=== PATIENT | female | born 1950 | race Caucasian/White ===

== ENCOUNTER → 2016-12-30 | Day surgery (SDC) | payer OTHER ==
[2016-12-11 08:02] VITALS: Ht 157.5 cm; Wt 75.0 kg
[~2016-12-30] VITALS: Ht 157.5 cm; Wt 75.0 kg
[~2016-12-30] MED LIST: 500ML BSS 0.3ML EPI 1:1000PF IRRIG ONE; ACET300T2 PO; ACETAMINOPHEN 325 MG TAB PO PRN; AMVISC PLUS 0.8ML SYRINGE INT OCU ONE; ATROPINE SULFATE 0.1 MG/ML 5ML SYR IV PRN; BIOT1TAB2 PO; BIOTCAP2 PO; BROM0.07 OPL; BSS FLUSH ONE; CRS/10 PO; CYCL0.052 OP; DIPH25CA5 PO; DIPH25CA50 PO; ENDOCOAT 0.85ML SYRINGE INT OCU ONE; EpHEDrine SULFATE INJ 50 MG/ML AMP IV PRN; EpINEphrine INJ 1MG/ML AMP 1 MG/ML AMP ONE; FENTANYL CITRATE INJ 50 MCG/1 ML 2 ML VIAL ONE; GLC/500 PO; GLC500 PO; LACTATED RINGER'S 1000ML 500 ML IV SCH; LEVO150T PO; LEVO150T9 PO; LIDOCAINE 4% OP SOLN DROP CHARGE ONE; LIDOCAINE 4% OP SOLN DROP CHARGE OPL SCH; LIDOCAINE HCL 1% MPF 2 ML VIAL ONE; METO25TA3 PO; MIDAZOLAM HCL 1 MG/ML 2ML VIAL ONE; MIX: 4ML BSS 1ML EPI 1:1000 PF TOP ONE; MOXIFLOXACIN OPH SOLN PER DROP CHARGE ONE; POVIDONE-IODINE OP SOLN 30 ML BTL ONE; PRED1SUS OPL; PROPARACAINE 0.5% OP SOLN PER DROP CHARGE OPL SCH; SERT50TA PO; TOBRAMYCIN/DEXAMETHASONE OPH OINT PER APPLN CHARGE ONE; TRMCR515 TOP; TRMO115 TOP
--- NOTE | 2016-12-30 08:09 | History & Physical Bridge - [place] ---
H&P Re-Evaluation Bridge Note: I have examined the patient, reviewed the History & Physical and in the interval since the performance of the History & Physical I have noted the following changes of clinical significance: No changes noted. Left eye cataract surgery.
[2016-12-30] MEDS: PHENYLEPHRINE HCL 2.5% OP SOLN PER DROP CHARGE OPL SCH ×3 (08:12→08:22)
[2016-12-30] MEDS: TROPICAMIDE 1% OP SOLN PER DROP CHARGE OPL SCH ×3 (08:13→08:23)
[2016-12-30] MEDS: CYCLOPENTOLATE HCL 1% OP SOLN PER DROP CHARGE OPL SCH ×3 (08:14→08:24)
[2016-12-30] MEDS: MOXIFLOXACIN OPH SOLN PER DROP CHARGE OPL SCH ×3 (08:15→08:25)
[2016-12-30 09:27] VITALS: TEMP 36.5
--- NOTE | 2016-12-30 09:27 | [facility] Post Operative Brief Note ---
Immediate Operative Summary Operative Date Dec 30, 2016. Pre-Operative Diagnosis Left Eye Cataract Post-Operative Diagnosis Left Cataract Phacoemulsification With Intraocular Lens Implant Procedure(s) Performed Left Cataract Phacoemulsification With Intraocular Lens Implant Surgeon Dr Daniels Dice Table Person Surgeon(s) None Estimated Blood Loss 0ml Findings left cataract Specimens None Complication(s) None Disposition
--- NOTE | 2016-12-30 09:27 | [facility] Operative Report ---
Operative Report Date of Service Dec 30, 2016. Operative Report DATE OF OPERATION: 12/30/16 PREOPERATIVE DIAGNOSIS: Senile nuclear cataract, left eye POSTOPERATIVE DIAGNOSIS: Senile nuclear cataract, left eye PROCEDURE PERFORMED: Phacoemulsification with intraocular lens implantation, left eye SURGEON: Dr. Bebeto Daniels ANESTHESIA: Topical with 1% intracameral lidocaine and monitored anesthesia care COMPLICATIONS: None DESCRIPTION OF PROCEDURE: After positively identifying the patient both verbally and by wristband in the preoperative area, the left eye was marked as the operative eye. The patient was then brought back to the operating room by the anesthesia and nursing staff where they were given a drop of Lidocaine and betadine into the operative eye. They were then sterilely prepped and draped in the standard fashion typical for ophthalmic surgery. Steri-strips were placed along the upper eyelids to keep the lashes back, and a lid speculum was placed into the operative eye. At this point, a documented time out was performed with members of the ophthalmology, nursing, and anesthesia staffs all agreeing upon the correct patient, correct location for surgery, correct procedure, and correct type and power of intraocular lens to be implanted. The microscope was then swung into position. First, a paracentesis wound was made using a sideport blade. Then, in sequence, 1% preservative-free lidocaine followed by Endocoat viscoelastic was injected into the anterior chamber. Next , the main incision was made with a keratome blade in triplanar fashion. A sharp cystotome was introduced into the eye and used to create a tear in the anterior capsule, which was directed into a continuous curvilinear capsulorrhexis using Utrata forceps. Hydrodissection was then performed with BSS on a flat-tip cannula. Next, the phacoemulsification handpiece was introduced into the eye and used to remove the nucleus in a [id number] fashion. This was done without complication and then the irrigation-aspiration handpiece was introduced into the eye and used to remove all remaining cortical and epinuclear material. Amvisc was then injected into the anterior chamber as well as into the capsular bag and using the lens injector system, an MX60 18.5 D lens, serial number [id number], and expiration date 04/2019 was injected into the capsular bag and rotated into the correct position. Next, the irrigation- aspiration handpiece was used to remove all remaining Amvisc. BSS was used to hydrate the main wound, and then BSS was injected into the paracentesis site to reach physiologic pressure and then the main wound was checked and found to be watertight. The patient was given drops of Vigamox and Tobradex ointment into the operative eye, and then the surrounding area was cleaned and dried. A clear plastic shield was placed over the eye and the patient was then sat up and taken from the operating room by the anesthesia staff having tolerated the procedure well and suffering no complications. DISPOSITION: The patient was returned to the recovery room in stable condition. I attest to the content of the Intraoperative Record and any orders documented therein. Any exceptions are noted below.
--- NOTE | 2016-12-30 09:29 | Discharge Instructions-SurgCtr ---
Discharge Instructions Date of Service Dec 30, 2016. Visit Reason for Visit: Cataract Left Eye Discharge Discharge Diagnosis / Problem: left cataract Discharge Goals Goal(s): Decrease discomfort, Improve function Medications Stopped Medications Name(s): metformin stopped 3 days ago Activity Recommendations Activity Limitations: as noted below Anesthesia . Post Anesthesia Instructions: If you have had General Anesthesia or IV Sedation: * Do not drive today. * Resume driving when surgeon permits. * Do not make important decisions or sign legal documents today. * Call surgeon for: 1. Temperature elevations greater than 101 degrees F. 2. Uncontrollable pain. 3. Excessive bleeding. 4. Persistent nausea and vomiting. 5. Medication intolerance (nausea, vomiting or rash). * For nausea and vomiting use only clear liquids such as: tea, soda, bouillon until nausea subsides, then gradually increase diet as tolerated. * If you have any concerns or questions, call your surgeon's office. If physician is unavailable and it is an emergency, call 911 or go to the nearest emergency room. . Instructions / Follow-Up Instructions / Follow-Up ACTIVITY RECOMMENDATIONS: * Light activities. * You may walk outside, read, watch television. * You may notice redness on the white part of the eye and some blurry vision - this is normal. MEDICATIONS: Resume previous medications unless instructed otherwise by your surgeon. Start all eye drops at 11:30 am today: * Eye drops (today): Prednisone - one drop in operative eye every 2 hours while awake Ofloxacin - one drop in operative eye every 2 hours while awake Prolensa - one drop in operative eye daily SPECIAL CARE INSTRUCTIONS: * Tape plastic shield over eye to sleep at night. Call your doctor at with any concerns or problems. FOLLOW UP VISIT: Follow-up with Dr Daniels at [facility] office as scheduled. Diet Recommendations Home Diet: no limitations Procedures Procedures Performed: Left Cataract Phacoemulsification With Intraocular Lens Implant Pending Studies Studies pending at discharge: no Medical Emergencies . Who to Call and When: Medical Emergencies: If at any time you feel your situation is an emergency, please call 911 immediately. . Non-Emergent Contact Non-Emergency issues call your: Surgeon . . "Provider Documentation" section prepared by Bebeto Daniels. .
--- NOTE | 2016-12-30 09:38 | Anesthesia Progress Nt - [facility] ---
Anesthesia Post Op Note Date & Time Dec 30, 2016 at 09:37 Vital Signs Pain Intensity: 0 Vital Signs Past 12 Hours Date Time Temp Pulse Resp B/P (MAP) Pulse Ox O2 Delivery O2 Flow Rate FiO2 12/30/16 08:02 36.7 61 16 171/53 (92) 98 Room Air Notes Mental Status: alert / awake / arousable, participated in evaluation Pt Amnestic to Procedure: Yes Nausea / Vomiting: adequately controlled Pain: adequately controlled Airway Patency, RR, SpO2: stable & adequate BP & HR: stable & adequate Hydration State: stable & adequate Anesthetic Complications: no major complications apparent
[2016-12-30 09:57] VITALS: BP 157/76; PULSE 61; O2SAT 96
== END | disposition home or self-care (01) ==
LOC: X.SURG 07:19
PROVIDERS: ATTEND Ophthalmology
DX: H25.12 Age-related nuclear cataract, left eye (principal); E11.36 Type 2 diabetes mellitus with diabetic cataract; I25.2 Old myocardial infarction; I25.10 Atherosclerotic heart disease of native coronary artery without angina pectoris; I12.9 Hypertensive chronic kidney disease with stage 1 through stage 4 chronic kidney disease, or unspecified chronic kidney disease; N18.2 Chronic kidney disease, stage 2 (mild); Z87.891 Personal history of nicotine dependence; G47.33 Obstructive sleep apnea (adult) (pediatric); Z86.73 Personal history of transient ischemic attack (TIA), and cerebral infarction without residual deficits; Z68.30 Body mass index [BMI] 30.0-30.9, adult; Z90.49 Acquired absence of other specified parts of digestive tract; Z96.651 Presence of right artificial knee joint

== ENCOUNTER 2017-01-17 07:10 | Emergency (ER) | payer OTHER ==
[~2017-01-17] VITALS: Ht 157.5 cm; Wt 75.0 kg
[~2017-01-17 07:10] MED LIST changes: -500ML BSS 0.3ML EPI 1:1000PF IRRIG ONE; -ACETAMINOPHEN 325 MG TAB PO PRN; -AMVISC PLUS 0.8ML SYRINGE INT OCU ONE; -ATROPINE SULFATE 0.1 MG/ML 5ML SYR IV PRN; -BIOTCAP2 PO; +BND25 PO; -BSS FLUSH ONE; -DIPH25CA5 PO; -DIPH25CA50 PO; -ENDOCOAT 0.85ML SYRINGE INT OCU ONE; -EpHEDrine SULFATE INJ 50 MG/ML AMP IV PRN; -EpINEphrine INJ 1MG/ML AMP 1 MG/ML AMP ONE; -FENTANYL CITRATE INJ 50 MCG/1 ML 2 ML VIAL ONE; -GLC/500 PO; -LACTATED RINGER'S 1000ML 500 ML IV SCH; -LEVO150T PO; -LIDOCAINE 4% OP SOLN DROP CHARGE ONE; -LIDOCAINE 4% OP SOLN DROP CHARGE OPL SCH; -LIDOCAINE HCL 1% MPF 2 ML VIAL ONE; -MIDAZOLAM HCL 1 MG/ML 2ML VIAL ONE; -MIX: 4ML BSS 1ML EPI 1:1000 PF TOP ONE; -MOXIFLOXACIN OPH SOLN PER DROP CHARGE ONE; -POVIDONE-IODINE OP SOLN 30 ML BTL ONE; -PROPARACAINE 0.5% OP SOLN PER DROP CHARGE OPL SCH; -TOBRAMYCIN/DEXAMETHASONE OPH OINT PER APPLN CHARGE ONE; -TRMO115 TOP
[2017-01-17 07:14] VITALS: TEMP 36.9; Ht 157.5 cm; Wt 75.0 kg
[2017-01-17] MEDS ORDERED: SODIUM CHLORIDE 0.9% 1000ML 1,000 ML IV STA (07:28)
[2017-01-17] MEDS ORDERED: KETOROLAC TROMETHAMINE 30 MG/ML VIAL IV STA (07:28)
--- NOTE | 2017-01-17 07:38 | EMERGENCY ROOM VISIT NOTE ---
History First contact with patient: 07:17 Chief Complaint: PAIN (GENERALIZED) Stated Complaint: PAIN ALL OVER History of Present Illness The patient is a 66 year old female who presents to the Emergency Room with complaints of muscle aches and diffuse joint pain for the past 4 weeks and getting progressively worse. She rates the pain as aching, constant, worse with movement, better with rest, 8/10. She states it is to the point that she has so much pain it is difficult for her to get up from sitting and walking. She denies any numbness, tingling, or weakness, just states she feels generally tired. She denies any fevers but has had some subjective chills intermittently. She does note some increased pain in her low back that has also been going on for the duration of her symptoms and progressively worsening. She denies any bowel or bladder dysfunction, saddle paresthesias, injury to her back. She denies any recent sick contacts. She states that she had blood work done 2 days ago that was ordered by her PCP and she has a follow- up appointment with her PCP tomorrow. She states she is here because she just couldn't take the pain anymore and she also wanted some answers. She is concerned this may be Lyme disease, noting history of possible tick exposure in the past. Review of Systems A complete 10 point review of systems was reviewed with the patient with pertinent positives and negatives as per history of present illness. All else were negative. 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 Surgical Problems: (1) H/O dilation and curettage (2) H/O knee surgery (3) H/O tubal ligation (4) Hx of cholecystectomy (5) Hx of tonsillectomy (6) Stented coronary artery Family History Diabetes mellitus FH: CAD (coronary artery disease) Social History Smoking Status: Former Smoker Marital Status: Housing Status: lives with family Current/Historical Medications Scheduled Biotin (Biotin), 2 TAB PO QAM Bromfenac Sodium (Ophth) (Prolensa), 1 DROP OPL DAILY Cyclosporine (Ophth) (Restasis), 1 DROP OP BID Levothyroxine Sodium (Levothyroxine Sodium), 150 MCG PO 5XWK Metformin HCl (Metformin HCl), 1 TAB PO QPM Metoprolol Succinate (Toprol Xl), 25 MG PO QPM Prednisolone Acetate (Ophth) (Omnipred), 1 DROPS OPL TID Rosuvastatin Calcium (Crestor), 10 MG PO HS Sertraline (Zoloft), 50 MG PO QAM Scheduled PRN Acetaminophen W/ Codeine (Tylenol W/Codeine #3), 1 TAB PO Q6H PRN for Headache or Pain Diphenhydramine Hcl (Benadryl), 25 MG PO Q8H PRN for Itching Triamcinolone Acet (Triamcinolone Acetonide), 1 APPLN TOP BID PRN for PRN Allergies Coded Allergies: Carisoprodol (Unverified Adverse Reaction, Unknown, PT FELT "DRUNK", ) PER PCP RECORDS Niacin (Unverified Adverse Reaction, Unknown, HOT FLASHES, 01/17/17) PER PCP RECORDS Paroxetine (Unverified Adverse Reaction, Unknown, BLOATING, WEIGHT GAIN, ) PER PCP RECORDS Statins (Verified Adverse Reaction, Unknown, SEVERE MUSCLE ACHES AND CRAMPS; ELEVATED LFTS, 01/17/17) Venlafaxine (Unverified Adverse Reaction, Unknown, HYPERHIDROSIS, 01/17/17) PER PCP RECORDS Uncoded Allergies: POWDERED GLOVES (Allergy, Unknown, POWDER IN DISPOSABLE GLOVES CAUSED PT'S HANDS TO PEEL, 06/02/16) Physical Exam Vital Signs Date Time Temp Pulse Resp B/P (MAP) Pulse Ox O2 Delivery O2 Flow Rate FiO2 01/17/17 14:42 58 16 165/77 93 Room Air 01/17/17 13:24 62 16 153/70 94 Room Air 01/17/17 12:02 57 16 138/65 94 Room Air 01/17/17 10:39 58 16 138/81 97 Room Air 01/17/17 09:02 63 16 143/78 94 Room Air 01/17/17 07:14 36.9 66 16 158/69 98 Room Air Physical Exam CONSTITUTIONAL: No acute distress. Well hydrated. Well appearing and well nourished. Alert and oriented X 4 with normal affect. HEENT: Normocephalic, atraumatic. Pupils equal, round and reactive to light, EOMI. TMs normal. Pharynx normal. Moist mucous membranes. NECK: Supple, full active range of motion without discomfort. RESPIRATORY: Clear to auscultation bilaterally with no wheezing, crackles, rhonchi or stridor. Equal expansion bilaterally. CARDIOVASCULAR: Regular rate and rhythm with no murmurs, rubs or gallops. Normal peripheral perfusion. No edema. GASTROINTESTINAL: Soft, nontender, nondistended. Bowel sounds present in all quadrants. MUSCULOSKELETAL: Full range of motion of all joints, but with pain. No erythema , warmth, or swelling noted to any of the joints. INTEGUMENTARY: No rash or other significant dermatologic conditions noted. NEUROLOGIC: Cranial nerves II-XII grossly intact. No focal neurologic deficits noted. Normal strength, normal sensation, normal speech, normal coordination, normal gait. Medical Decision & Procedures ER Provider Diagnostic Interpretation: CHEST 2 VIEWS ROUTINE CLINICAL HISTORY: leukocytosis, eval infection source dyspnea COMPARISON STUDY: 06/02/2016 FINDINGS: The bones soft tissues and hemidiaphragms are normal. The cardiomediastinal silhouette is normal. The lungs are clear. The pulmonary vasculature is normal. IMPRESSION: Negative chest. Laboratory Results 01/17/17 07:45 Red Blood Count 4.14, Mean Corpuscular Volume 81.6, Mean Corpuscular Hemoglobin 25.8, Mean Corpuscular Hemoglobin Concent 31.7, Mean Platelet Volume 9.6, Neutrophils (%) (Auto) 72.6, Lymphocytes (%) (Auto) 16.8, Monocytes (%) (Auto) 8.4, Eosinophils (%) (Auto) 1.9, Basophils (%) (Auto) 0.1, Neutrophils # (Auto) 9.78, Lymphocytes # (Auto) 2.27, Monocytes # (Auto) 1.13, Eosinophils # (Auto) 0.25, Basophils # (Auto) 0.02 01/17/17 07:45 Test 01/17/17 07:45 01/17/17 07:52 01/17/17 07:53 White Blood Count 13.48 K/uL (4.8-10.8) Red Blood Count 4.14 M/uL (4.2-5.4) Hemoglobin 10.7 g/dL (12.0-16.0) Hematocrit 33.8 % (37-47) Mean Corpuscular Volume 81.6 fL (80-100) Mean Corpuscular Hemoglobin 25.8 pg (25-34) Mean Corpuscular Hemoglobin Concent 31.7 g/dl (32-36) Platelet Count 292 K/uL (130-400) Mean Platelet Volume 9.6 fL (7.4-10.4) Neutrophils (%) (Auto) 72.6 % Lymphocytes (%) (Auto) 16.8 % Monocytes (%) (Auto) 8.4 % Eosinophils (%) (Auto) 1.9 % Basophils (%) (Auto) 0.1 % Neutrophils # (Auto) 9.78 K/uL (1.4-6.5) Lymphocytes # (Auto) 2.27 K/uL (1.2-3.4) Monocytes # (Auto) 1.13 K/uL (0.11-0.59) Eosinophils # (Auto) 0.25 K/uL (0-0.5) Basophils # (Auto) 0.02 K/uL (0-0.2) RDW Standard Deviation 42.8 fL (36.4-46.3) RDW Coefficient of Variation 14.3 % (11.5-14.5) Immature Granulocyte % (Auto) 0.2 % Immature Granulocyte # (Auto) 0.03 K/uL (0.00-0.02) Erythrocyte Sedimentation Rate 67 mm/hr (0-21) Anion Gap 6.0 mmol/L (3-11) Est Creatinine Clear Calc Drug Dose 54.8 ml/min Estimated GFR () 71.0 Estimated GFR (Non- 61.3 BUN/Creatinine Ratio 15.1 (10-20) Calcium Level 9.4 mg/dl (8.5-10.1) Total Bilirubin 0.3 mg/dl (0.2-1) Direct Bilirubin < 0.1 mg/dl (0-0.2) Aspartate Amino Transf (AST/SGOT) 13 U/L (15-37) Alanine Aminotransferase (ALT/SGPT) 18 U/L (12-78) Alkaline Phosphatase 60 U/L (45-117) Total Creatine Kinase 84 U/L (26-192) Troponin I < 0.015 ng/ml (0-0.045) C-Reactive Protein 7.16 mg/dl (0-0.29) Total Protein 7.6 gm/dl (6.4-8.2) Albumin 3.3 gm/dl (3.4-5.0) Thyroid Stimulating Hormone (TSH) 3.700 uIu/ml (0.300-4.500) Lyme Disease IgG Antibody NEG (NEG) Lyme Disease IgM Antibody NEG (NEG) Anti-Streptolysin O Antibody Screen POS IU/ml (<200 IU) Anti-Streptolysin O Antibody Titer 200 IU/ml (<200 IU) Urine Color YELLOW Urine Appearance CLEAR (CLEAR) Urine pH 5.0 (4.5-7.5) Urine Specific [place] 1.025 (1.000-1.030) Urine Protein NEG (NEG) Urine Glucose (UA) NEG (NEG) Urine Ketones NEG (NEG) Urine Occult Blood 1+ (NEG) Urine Nitrite NEG (NEG) Urine Bilirubin NEG (NEG) Urine Urobilinogen NEG (NEG) Urine Leukocyte Esterase NEG (NEG) Urine WBC (Auto) 1-5 /hpf (0-5) Urine RBC (Auto) 0-4 /hpf (0-4) Urine Hyaline Casts (Auto) 1-5 /lpf (0-5) Urine Epithelial Cells (Auto) >30 /lpf (0-5) Urine Bacteria (Auto) NEG (NEG) Bedside Lactic Acid Venous 0.98 mmol/L (0.90-1.70) Medications Administered Medications (Trade) Dose Ordered Sig/Raisa Route Start Time Stop Time Status Last Admin Dose Admin Sodium Chloride 1,000 ml @ 999 mls/hr Q1H1M STAT IV 01/17/17 07:28 01/17/17 08:28 DC 01/17/17 07:49 999 MLS/HR Ketorolac Tromethamine (Toradol Inj) 15 mg NOW STAT IV 01/17/17 07:28 01/17/17 07:34 DC 01/17/17 07:49 15 MG ECG Indication: weakness Rate (beats per minute): 63 Rhythm: normal sinus Findings: no acute ischemic change, no ectopy Medical Decision CC: Patient presenting with complaint of diffuse myalgias, polyarthralgias for 4 weeks Interpretation of Labs: Leukocytosis with left shift, mild anemia (consistent with baseline), no significant electrolyte abnormalities, normal renal function , normal liver enzymes and lipase. Normal lactic acid. Negative Lyme antibodies. Mildly elevated ASO, feel this is nondiagnostic. Significantly elevated ESR and CRP. Normal CPK. Differential Diagnosis: Includes, but not limited to arthritis, post infection myositis, rhabdomyolysis, Lyme disease, infection, bacteremia, pneumonia, UTI, rheumatologic disorder, among others. Medication Reconciliation: I attest that I have personally reviewed the patient' s current medication list. Vital signs review: I reviewed the patient's vital signs and interpret them as follows: T: Afebrile; BP: Hypertensive; HR: Within normal limits; RR: Within normal limits; Pulse Ox: Within normal limits on room air. Blood pressure screening: The patient was found to have an elevated blood pressure and was referred to their primary doctor for recheck and further treatment. Summary: Patient was evaluated at bedside, history of physical exam performed. Alert and in no acute distress. Diffuse polyarthralgias that are exacerbated with range of motion of the joints , no erythema, warmth, or swelling over any joints noted. Orders were placed at bedside for labs to include inflammatory markers, CPK, lactic acid, Lyme antibodies, urinalysis. Patient discussed with Dr. Sheridan, who agrees with my assessment and plan. Labs obtained from [facility], which the patient had drawn 2 days ago. Labs reviewed as above, concerning for developing leukocytosis when compared to outside labs from 2 days ago, as well as significantly elevated inflammatory markers. Discussed this with Dr. Sheridan, chest x-ray and blood cultures added for infection workup. Chest x-ray reviewed, no acute abnormalities. MRI of the L-spine with IV contrast performed to evaluate for discitis/ osteomyelitis/epidural abscess as possible infectious source. Upon review, this is negative for any acute abnormality. Patient reports improved symptoms after IV fluid bolus and Toradol. She was updated on all results and plan for discharge home Patient was instructed to follow closely with her PCP for further evaluation and management, and she may warrant a rheumatology referral. She was instructed to stop taking her statin as this may be contributing to her symptoms. Patient was also instructed on return precautions should her symptoms worsen in any way, she verbalized understanding. Patient was discharged home in stable condition and ambulatory. Impression Primary Impression: Myalgia Additional Impression: Polyarthralgia Departure Information Dispostion Home / Self-Care Condition GOOD Referrals Ariadne PACHECO M.D. (PCP) Patient Instructions ED Joint Pain, ED Muscle Aching, My [facility] Additional Instructions Follow-up with your PCP within the next week to discuss your symptoms. Your doctor can arrange to refer you to see a fire lieutenant. Drink plenty of fluids to stay well hydrated. Tylenol 1000 mg every 8 hours as needed for pain. Heating pads or warm compresses, soaking in a warm bath to help reduce pain in your muscles and joints. Stop taking your Crestor, as this may be causing some of your symptoms. Please return to the ER for worsening symptoms, including fevers, persistent vomiting, chest pain, shortness of breath, abdominal pain, worsening weakness or confusion, or any other concerns. Problem Qualifiers
[2017-01-17 08:08] LABS: BASO % 0.1 %; BASO ABS # 0.02 K/uL (0-0.2); COMPLETE YES; EOS % 1.9 %; HEMATOCRIT 33.8 % (37-47); IG% 0.2 %; LYMPH % 16.8 %; LYMPH ABS # 2.27 K/uL (1.2-3.4); MEAN CELL VOLUME 81.6 fL (80-100); MEAN CORPUSCULAR HEMOGLOBIN 25.8 pg (25-34); MEAN CORPUSCULAR HGB CONC 31.7 g/dl (32-36); MEAN PLATELET VOLUME 9.6 fL (7.4-10.4); MONO % 8.4 %; NEUT % 72.6 %; PLATELET COUNT 292 K/uL (130-400); RED BLOOD COUNT 4.14 M/uL (4.2-5.4); WHITE BLOOD COUNT 13.48 K/uL (4.8-10.8)
[2017-01-17 08:11] LABS: URINE APPEARANCE CLEAR (CLEAR); URINE BILIRUBIN NEG (NEG); URINE COLOR YELLOW; URINE EPITHELIAL CELL AUTO >30 /lpf (0-5); URINE NITRITE NEG (NEG); URINE SPECIFIC GRAVITY 1.025 (1.000-1.030); UROBILINOGEN NEG (NEG); ZZUR CULT IF INDIC CLEAN CATCH NO
[2017-01-17 08:12] LABS: MANUAL MICROSCOPIC REQUIRED? NO; REVIEW REQ? NO
[2017-01-17 08:25] LABS: ALT/SGPT 18 U/L (12-78); BLOOD UREA NITROGEN 15 mg/dl (7-18); BUN/CREATININE RATIO 15.1 (10-20); C-REACTIVE PROTEIN 7.16 mg/dl (0-0.29); CALCIUM 9.4 mg/dl (8.5-10.1); CARBON DIOXIDE 27 mmol/L (21-32); CHLORIDE 106 mmol/L (98-107); CREATININE 0.97 mg/dl (0.60-1.20); GLUCOSE 125 mg/dl (70-99); POTASSIUM 4.3 mmol/L (3.5-5.1); SODIUM 139 mmol/L (136-145)
[2017-01-17 08:27] LABS: ANTI-STREP O SCR: 5YRS OR > POS IU/ml (<200 IU)
[2017-01-17 08:29] LABS: ANTI-STREP O TITRE: 5YR OR > 200 IU/ml (<200 IU)
[2017-01-17 08:36] LABS: ALKALINE PHOSPHATASE 60 U/L (45-117); AST/SGOT 13 U/L (15-37)
[2017-01-17 08:53] LABS: LYME DISEASE AB IGG NEG (NEG); LYME DISEASE AB IGM NEG (NEG)
--- NOTE | 2017-01-17 10:07 | DIAGNOSTIC IMAGING REPORT ---
CHEST 2 VIEWS ROUTINE CLINICAL HISTORY: leukocytosis, eval infection source dyspnea COMPARISON STUDY: 06/02/2016 FINDINGS: The bones soft tissues and hemidiaphragms are normal. The cardiomediastinal silhouette is normal. The lungs are clear. The pulmonary vasculature is normal. IMPRESSION: Negative chest. The above report was generated using voice recognition software. It may contain grammatical, syntax or spelling errors. Electronically signed by: Luis Melara M.D. 01/17/2017 10:06 AM Dictated Date/Time: 01/17/2017 10:05 AM
--- NOTE | 2017-01-17 10:46 | EMERGENCY ROOM VISIT NOTE ---
ED Visit Note First contact with patient: 07:17 The patient was seen and examined with Mariah FORTUNE. I agree with the history, physical and findings. Please see the note for disposition and details. The patient was evaluated. I did examine the patient. She has diffuse arthralgias and myalgias without evidence of arthritis on examination. she has a benign abdomen. Her workup here revealed a mild leukocytosis and elevation of her inflammatory markers. No clear signs of infection could be found. She did note having some low back pain. Due to this the patient underwent MR imaging which did not reveal any evidence of discitis, osteomyelitis, or epidural abscess. The patient has been dealing with this for several weeks. She will need close outpatient follow-up. The exact etiology of her symptoms is not known. She may need rheumatology consultation. She will stop her statin temporarily as she has had problems with myositis and myalgias in the past with statin use and then it was restarted. She worsens in any way she will be back to the emergency department for reevaluation.
[2017-01-17] MEDS ORDERED: GADAVIST IV PRN (14:00)
--- NOTE | 2017-01-17 14:40 | DIAGNOSTIC IMAGING REPORT ---
LUMBAR SPINE COMBINATION HISTORY: Pain low back pain, eval discitis/osteomyelitis TECHNIQUE: Multiplanar multisequence MRI of the lumbar spine was performed both before and after the intravenous administration of contrast. COMPARISON: None. FINDINGS: For the purpose of the report the L5-S1 disc space will be located on axial image 27 of 30. Signal characteristics of the vertebral bodies are unremarkable throughout. Minimal disc desiccation. No evidence for abnormal postcontrast enhancement in the sagittal plane. Mild degenerative changes of posterior elements L1-L2: No significant central canal or neural foraminal narrowing. L2-L3: No significant central canal or neural foraminal narrowing. L3-L4: No significant central canal or neural foraminal narrowing. L4-L5: No significant central canal or neural foraminal narrowing. L5-S1: No significant central canal or neural foraminal narrowing. IMPRESSION: Mild degenerative changes of posterior elements. Otherwise negative study. No evidence for discitis, or abnormal postcontrast enhancement. No evidence for disc herniation or spinal stenosis. The above report was generated using voice recognition software. It may contain grammatical, syntax or spelling errors. Electronically signed by: Luis Melara M.D. 01/17/2017 2:39 PM Dictated Date/Time: 01/17/2017 2:37 PM
[2017-01-17 14:42] VITALS: BP 165/77; PULSE 58; O2SAT 93
== END 2017-01-17 15:07 | disposition home or self-care (01) ==
LOC: C.EDB 07:11 → C.EDA 15:07
DX: M79.1 Myalgia (principal); M25.50 Pain in unspecified joint; I25.10 Atherosclerotic heart disease of native coronary artery without angina pectoris; N18.2 Chronic kidney disease, stage 2 (mild); I12.9 Hypertensive chronic kidney disease with stage 1 through stage 4 chronic kidney disease, or unspecified chronic kidney disease; Z86.73 Personal history of transient ischemic attack (TIA), and cerebral infarction without residual deficits; E11.9 Type 2 diabetes mellitus without complications; E78.5 Hyperlipidemia, unspecified; E03.9 Hypothyroidism, unspecified; G47.33 Obstructive sleep apnea (adult) (pediatric); M17.9 Osteoarthritis of knee, unspecified; Z98.51 Tubal ligation status; Z90.49 Acquired absence of other specified parts of digestive tract; Z95.5 Presence of coronary angioplasty implant and graft; Z83.3 Family history of diabetes mellitus; Z82.49 Family history of ischemic heart disease and other diseases of the circulatory system; Z87.891 Personal history of nicotine dependence; Z79.899 Other long term (current) drug therapy

== ENCOUNTER → 2017-01-20 | Day surgery (SDC) | payer OTHER ==
[2017-01-11 12:15] VITALS: Ht 157.5 cm; Wt 75.0 kg
[~2017-01-20] VITALS: Ht 157.5 cm; Wt 75.0 kg
[~2017-01-20] MED LIST changes: +500ML BSS 0.3ML EPI 1:1000PF IRRIG ONE; +ACETAMINOPHEN 325 MG TAB PO PRN; +AMVISC PLUS 0.8ML SYRINGE INT OCU ONE; +BSS FLUSH ONE; +ENDOCOAT 0.85ML SYRINGE INT OCU ONE; +EpINEphrine INJ 1MG/ML AMP 1 MG/ML AMP ONE; +LACTATED RINGER'S 1000ML 500 ML IV SCH; +LIDOCAINE 4% OP SOLN DROP CHARGE ONE; +LIDOCAINE 4% OP SOLN DROP CHARGE OPR SCH; +LIDOCAINE HCL 1% MPF 2 ML VIAL ONE; +MIDAZOLAM HCL 1 MG/ML 2ML VIAL ONE; +MIX: 4ML BSS 1ML EPI 1:1000 PF TOP ONE; +MOXIFLOXACIN OPH SOLN PER DROP CHARGE ONE; +POVIDONE-IODINE OP SOLN 30 ML BTL ONE; +PROPARACAINE 0.5% OP SOLN PER DROP CHARGE OPR SCH; +TOBRAMYCIN/DEXAMETHASONE OPH OINT PER APPLN CHARGE ONE
--- NOTE | 2017-01-20 07:30 | History & Physical Bridge - [place] ---
H&P Re-Evaluation Bridge Note: I have examined the patient, reviewed the History & Physical and in the interval since the performance of the History & Physical I have noted the following changes of clinical significance: No changes noted
[2017-01-20] MEDS: PHENYLEPHRINE HCL 2.5% OP SOLN PER DROP CHARGE OPR SCH ×3 (08:01→08:11)
[2017-01-20] MEDS: TROPICAMIDE 1% OP SOLN PER DROP CHARGE OPR SCH ×3 (08:02→08:12)
[2017-01-20] MEDS: CYCLOPENTOLATE HCL 1% OP SOLN PER DROP CHARGE OPR SCH ×3 (08:03→08:12)
[2017-01-20] MEDS: MOXIFLOXACIN OPH SOLN PER DROP CHARGE OPR SCH ×3 (08:04→08:14)
--- NOTE | 2017-01-20 08:44 | [facility] Post Operative Brief Note ---
Immediate Operative Summary Operative Date Jan 20, 2017. Pre-Operative Diagnosis Cataract Right Eye Post-Operative Diagnosis Same Procedure(s) Performed Right Cataract Phacoemulsification With Intraocular Lens Implant Surgeon Dr. Daniels Call Center Director Surgeon(s) None Estimated Blood Loss 0 Findings right cataract Specimens 0 Complication(s) None Disposition
--- NOTE | 2017-01-20 08:45 | [facility] Operative Report ---
Operative Report Date of Service Jan 20, 2017. Operative Report Phaco with monofocal IOL DATE OF OPERATION: 01/20/17 PREOPERATIVE DIAGNOSIS: Senile nuclear cataract, right eye POSTOPERATIVE DIAGNOSIS: Senile nuclear cataract, right eye PROCEDURE PERFORMED: Phacoemulsification with intraocular lens implantation, right eye SURGEON: Dr. Bebeto Daniels ANESTHESIA: Topical with 1% intracameral lidocaine and monitored anesthesia care COMPLICATIONS: None DESCRIPTION OF PROCEDURE: After positively identifying the patient both verbally and by wristband in the preoperative area, the right eye was marked as the operative eye. The patient was then brought back to the operating room by the anesthesia and nursing staff where they were given a drop of Lidocaine and betadine into the operative eye. They were then sterilely prepped and draped in the standard fashion typical for ophthalmic surgery. Steri-strips were placed along the upper eyelids to keep the lashes back, and a lid speculum was placed into the operative eye. At this point, a documented time out was performed with members of the ophthalmology, nursing, and anesthesia staffs all agreeing upon the correct patient, correct location for surgery, correct procedure, and correct type and power of intraocular lens to be implanted. The microscope was then swung into position. First, a paracentesis wound was made using a sideport blade. Then, in sequence, 1% preservative-free lidocaine followed by Endocoat viscoelastic was injected into the anterior chamber. Next , the main incision was made with a keratome blade in triplanar fashion. A sharp cystotome was introduced into the eye and used to create a tear in the anterior capsule, which was directed into a continuous curvilinear capsulorrhexis using Utrata forceps. Hydrodissection was then performed with BSS on a flat-tip cannula. Next, the phacoemulsification handpiece was introduced into the eye and used to remove the nucleus in a [id number] fashion. This was done without complication and then the irrigation-aspiration handpiece was introduced into the eye and used to remove all remaining cortical and epinuclear material. Amvisc was then injected into the anterior chamber as well as into the capsular bag and using the lens injector system, an MX60 18.5 D lens, serial number [id number], and expiration date 05/2019 was injected into the capsular bag and rotated into the correct position. Next, the irrigation- aspiration handpiece was used to remove all remaining Amvisc. BSS was used to hydrate the main wound, and then BSS was injected into the paracentesis site to reach physiologic pressure and then the main wound was checked and found to be watertight. The patient was given drops of Vigamox and Tobradex ointment into the operative eye, and then the surrounding area was cleaned and dried. A clear plastic shield was placed over the eye and the patient was then sat up and taken from the operating room by the anesthesia staff having tolerated the procedure well and suffering no complications. DISPOSITION: The patient was returned to the recovery room in stable condition. I attest to the content of the Intraoperative Record and any orders documented therein. Any exceptions are noted below.
--- NOTE | 2017-01-20 08:46 | Discharge Instructions-SurgCtr ---
Discharge Instructions Date of Service Jan 20, 2017. Visit Reason for Visit: Right Cataract Discharge Discharge Diagnosis / Problem: right cataract Discharge Goals Goal(s): Decrease discomfort, Improve function Medications Stopped Medications Name(s): METFORMIN 01/17 Activity Recommendations Activity Limitations: as noted below Anesthesia . Post Anesthesia Instructions: If you have had General Anesthesia or IV Sedation: * Do not drive today. * Resume driving when surgeon permits. * Do not make important decisions or sign legal documents today. * Call surgeon for: 1. Temperature elevations greater than 101 degrees F. 2. Uncontrollable pain. 3. Excessive bleeding. 4. Persistent nausea and vomiting. 5. Medication intolerance (nausea, vomiting or rash). * For nausea and vomiting use only clear liquids such as: tea, soda, bouillon until nausea subsides, then gradually increase diet as tolerated. * If you have any concerns or questions, call your surgeon's office. If physician is unavailable and it is an emergency, call 911 or go to the nearest emergency room. . Instructions / Follow-Up Instructions / Follow-Up ACTIVITY RECOMMENDATIONS: * Light activities. * You may walk outside, read, watch television. * You may notice redness on the white part of the eye and some blurry vision - this is normal. MEDICATIONS: Resume previous medications unless instructed otherwise by your surgeon. Start all eye drops at 11 am today: * Eye drops (today): Prednisone - one drop in operative eye every 2 hours while awake Ofloxacin - one drop in operative eye every 2 hours while awake Prolensa - one drop in operative eye daily SPECIAL CARE INSTRUCTIONS: * Tape plastic shield over eye to sleep at night. Call your doctor at with any concerns or problems. FOLLOW UP VISIT: Follow-up with Dr Daniels at [place] office as scheduled. Diet Recommendations Home Diet: no limitations Procedures Procedures Performed: Right Cataract Phacoemulsification With Intraocular Lens Implant Pending Studies Studies pending at discharge: no Medical Emergencies . Who to Call and When: Medical Emergencies: If at any time you feel your situation is an emergency, please call 911 immediately. . Non-Emergent Contact Non-Emergency issues call your: Surgeon . . "Provider Documentation" section prepared by Bebeto Daniels. .
--- NOTE | 2017-01-20 08:46 | Anesthesia Progress Nt - [facility] ---
Anesthesia Post Op Note Date & Time Jan 20, 2017 at 08:45 Vital Signs Pain Intensity: 0 Vital Signs Past 12 Hours Date Time Temp Pulse Resp B/P (MAP) Pulse Ox O2 Delivery O2 Flow Rate FiO2 01/20/17 07:34 37.2 67 20 144/71 (95) 97 Room Air Notes Mental Status: alert / awake / arousable, participated in evaluation Pt Amnestic to Procedure: Yes Nausea / Vomiting: adequately controlled Pain: adequately controlled Airway Patency, RR, SpO2: stable & adequate BP & HR: stable & adequate Hydration State: stable & adequate Anesthetic Complications: no major complications apparent
[2017-01-20 08:47] VITALS: TEMP 37
[2017-01-20 09:03] VITALS: BP 167/72; PULSE 68; O2SAT 98
== END | disposition home or self-care (01) ==
LOC: X.SURG 07:24
PROVIDERS: ATTEND Ophthalmology
DX: H25.11 Age-related nuclear cataract, right eye (principal); I10 Essential (primary) hypertension; E78.00 Pure hypercholesterolemia, unspecified; E11.9 Type 2 diabetes mellitus without complications; E07.9 Disorder of thyroid, unspecified; Z87.891 Personal history of nicotine dependence; Z79.84 Long term (current) use of oral hypoglycemic drugs; Z79.899 Other long term (current) drug therapy

== ENCOUNTER 2019-07-10 00:10 | Observation (INO) ==
[2019-07-10] MEDS ORDERED: FAMOTIDINE 20MG/5ML IV PUSH IV STA (00:30)
[2019-07-10] MEDS ORDERED: NITROGLYCERIN 2% OINTMENT 30GM TUBE EXT STA (00:30)
[2019-07-10 00:49] LABS: Basophils # (auto) 0.02 K/uL (0-0.2); Basophils % (auto) 0.2 %; Eosinophils # (auto) 0.48 K/uL (0-0.5); Hematocrit (blood only) 39.8 % (37-47); Hemoglobin 12.9 g/dL (12.0-16.0); Immature Granulocytes # (auto) 0.04 K/uL (0.00-0.02); Immature Granulocytes % (auto) 0.4 %; Lymphocytes # (auto) 3.36 K/uL (1.2-3.4); Lymphocytes % (auto) 35.2 %; Mean Corpuscular Hemoglobin 29.1 pg (25-34); Mean Corpuscular Hgb Conc 32.4 g/dL (32-36); Mean Corpuscular Volume 89.8 fL (80-100); Mean Platelet Volume 9.9 fL (7.4-10.4); Monocytes # (auto) 0.72 K/uL (0.11-0.59); Monocytes % (auto) 7.5 %; Neutrophils # (auto) 4.92 K/uL (1.4-6.5); Neutrophils % (auto) 51.7 %; Platelet Count 210 K/uL (130-400); RDW Standard Deviation 45.4 fL (36.4-46.3); Red Blood Count 4.43 M/uL (4.2-5.4); White Blood Count 9.54 K/uL (4.8-10.8)
[2019-07-10 01:09] LABS: Alanine Aminotransferase 23 U/L (12-78); Albumin Level 3.9 gm/dl (3.4-5.0); Aspartate Aminotransferase 13 U/L (15-37); BUN Creatinine Ratio 14.4 (10-20); Blood Urea Nitrogen 17 mg/dl (7-18); Carbon Dioxide 31 mmol/L (21-32); Chloride 106 mmol/L (98-107); Creatinine Clr Calc Pharmacy 44.6 ml/min; Est GFR (African American) 56.6; Est GFR (Non-African American) 48.9; Glucose 99 mg/dl (70-99); Lipase 374 U/L (73-393); Potassium 4.1 mmol/L (3.5-5.1); Sodium 141 mmol/L (136-145)
[2019-07-10 01:14] LABS: Albumin Globulin Ratio 1.1 (0.9-2); Alkaline Phosphatase 77 U/L (45-117); Bilirubin,Total 0.2 mg/dl (0.2-1); Globulin 3.5 gm/dl (2.5-4.0); NT Pro B Type Natriuretic Pept 122 pg/ml (0-900); Total Protein 7.4 gm/dl (6.4-8.2); Troponin I < 0.015 ng/ml (0-0.045)
[2019-07-10] MEDS ORDERED: ACETAMINOPHEN 1,000 MG/100 ML VIAL IV STA (01:15)
[2019-07-10] MEDS ORDERED: fentaNYL citrate 100 MCG/2 ML VIAL IV PRN (01:15)
[2019-07-10 01:32] LABS: D Dimer 590 ug/L FEU (0-500)
[2019-07-10] MEDS ORDERED: OPTIRAY 320 125ml IV PRN (01:56)
--- NOTE | 2019-07-10 03:12 | Emergency Department Note ---
Entered by Ting Wilkes acting as a scribe for Magy Kurtz DO History of Present Illness General Chief complaint: Chest Pain Stated complaint: TIGHTNESS IN CHEST AROUND TO BACK Time Seen by Provider: 07/10/19 00:21 Source: patient and family () History of Present Illness Onset (ago): hour(s) (9:00PM today ) Location: chest (below both breasts near diaphragm ) Radiation: back and other (posterior right shoulder) Pain Consistency: + constant Maximum Pain Intensity: 6 Quality: + burning (similar to indigestion) and + crushing (pressure, "feels like someone is sitting on her chest") Relieved By: + rest (laying down) Associated symptoms: + denies other symptoms (jaw pain, arm pain, vomiting, leg swelling), + cough (x2 weeks) and + other (cold sx x2 weeks, nausea); no fever/chills The patient is a 69 year old female with a history of CO, stented coronary artery, CAD, left heart catheterization, CVA, HTN, HLD, DM2, CKD stage III, hypothyroidism, who presents to the Emergency Room with complaints of chest pain. The patient states that at 9:00PM today she began to experience pain below both breasts near her diaphragm. She explains that this pain felt similar to indigestion, however it was not easing up on its own which prompted her ED visit today. The patient does not typically experience indigestion but states that she was drinking caden ismael earlier this evening. Currently she has pressure in her chest that feels as if someone is sitting on it which is a symptom she experienced during her previous coronary stent placement. The patient includes that her pain radiates to the posterior right shoulder and into her back but states she has never had this radiation in the past. She also complains of nausea during onset of the episode. Her pressure is relieved when laying down. Of note, the patient has had a persistent cough for about 2 weeks associated with cold symptoms. She was seen by her PCP for this and was told that her illness is viral. Additionally, she has not had any recent medication changes and did not take anything for pain [employer]TER. She denies jaw pain, arm pain, vomiting, fever, and leg swelling, The patient offers no further concerns at this time. Home Medications Home Medications Medication Instructions Recorded Confirmed Type acetaminophen 300 mg-codeine 15 mg 1 tab PO DAILY PRN tab 02/16/19 07/10/19 History tablet aspirin 81 mg chewable tablet 81 mg PO DAILY tab 02/16/19 07/10/19 History biotin 1 mg tablet 1 mg PO 5XWK tab 02/16/19 07/10/19 History calcium carbonate 600 mg calcium 600 mg PO 3XWK tab 02/16/19 07/10/19 History (1,500 mg) tablet coenzyme Q10 200 mg capsule 200 mg PO BID cap 02/16/19 07/10/19 History cyclosporine 0.05 % eye drops in a 1 drops OP Q12H ea 02/16/19 07/10/19 History dropperette lancets 30 gauge #25 ea 02/16/19 02/16/19 History metoprolol succinate 25 mg 25 mg PO DAILY tab 02/16/19 07/10/19 History tablet,extended release 24 hr nitroglycerin 0.4 mg sublingual 0.4 mg SL Q5M PRN tab 02/16/19 07/10/19 History tablet omega 3-dha 120 mg-epa 180 mg-fish 1 cap PO BID cap 02/16/19 07/10/19 History oil 600 mg capsule rosuvastatin 5 mg tablet 5 mg PO .COMPLEX tab 02/16/19 07/10/19 History sertraline 50 mg tablet 50 mg PO DAILY tab 02/16/19 07/10/19 History triamcinolone acetonide 0.1 % 1 appln TOPICAL BID PRN gm 02/16/19 07/10/19 History topical cream blood sugar diagnostic #10 ea 04/10/19 04/10/19 History hydroxychloroquine 200 mg tablet 400 mg PO DAILY #180 tab 05/03/19 07/10/19 History methotrexate sodium 2.5 mg tablet 17.5 mg PO DAILY tab 05/03/19 07/10/19 History folic acid 1 mg PO BID 07/10/19 07/10/19 History levothyroxine [Synthroid] 150 mcg PO DAILY 07/10/19 07/10/19 History metformin 500 mg PO DAILY #0 tab 07/10/19 07/10/19 Rx pantoprazole 40 mg PO QAM 14 Days #14 tab 07/10/19 Rx Allergies Allergy/AdvReac Type Severity Reaction Status Date / Time Sulfa (Sulfonamide Allergy Unknown Nausea Verified 01/06/20 01:25 Antibiotics) ABRAM Inhibitors AdvReac Mild hyperkalemi Verified 07/10/19 04:57 a carisoprodol AdvReac Unknown PT FELT Unverified 07/10/19 01:25 "DRUNK" niacin AdvReac Unknown HOT FLASHES Unverified 07/10/19 01:25 paroxetine AdvReac Unknown BLOATING, Unverified 07/10/19 01:25 WEIGHT GAIN Vyzofln-Oer-Abi Reductase AdvReac Unknown SEVERE Verified 07/10/19 01:25 Inhibitor MUSCLE ACHES AND CRAMPS; ELEVATED LFTS venlafaxine AdvReac Unknown HYPERHIDROS Unverified 07/10/19 01:25 IS ARB-Angiotensin Receptor AdvReac hyperkalemi Verified 07/10/19 04:57 Antagonist a POWDERED GLOVES Allergy Unknown POWDER IN Uncoded 07/10/19 01:25 DISPOSABLE GLOVES CAUSED PT'S HANDS TO PEEL Zetia TABS Allergy Unknown Uncoded 07/10/19 01:25 Past Med/Surg History Social History Preferred Language: Japanese Communication Ability: Effective Beliefs That Will Affect Care: None Current Living Situation: Spouse Feels Safe at Home: Yes Smoking Status: Former smoker Hx Alcohol Use: No Hx Substance Use: No Review of Systems See HPI for pertinent positives & negatives. and A total of 10 systems reviewed and were otherwise negative Physical Exam Vital Signs Vital Signs - 24 hr 07/10/19 03:08 07/10/19 03:54 07/10/19 04:21 Pulse Rate [Apical] 72 59 L 66 Respiratory Rate 18 18 18 Blood Pressure [Left Arm] 141/68 H 157/69 H 164/91 H Blood Pressure Mean [Left Arm] 92 98 115 Pulse Oximetry 95 96 96 Oxygen Delivery Method Room Air Room Air Room Air GENERAL: alert, mildly uncomfortable appearing, well nourished, no distress, non-toxic EYE EXAM: normal conjunctiva, PERRL and EOM's grossly intact OROPHARYNX: no exudate, no erythema, lips, buccal mucosa, and tongue normal and mucous membranes are moist NECK: supple, no nuchal rigidity, no adenopathy, non-tender LUNGS: Clear to auscultation. Normal chest wall mechanics, no w/r/r HEART: no murmurs, S1 normal and S2 normal CHEST: No reproducible chest wall tenderness. ABDOMEN: abdomen soft, non-tender, normo-active bowel sounds, no masses, no re bound or guarding. BACK: Back is symmetrical on inspection and there is no deformity, no midline tenderness, no CVA tenderness. SKIN: no rashes and no bruising, no petechiae UPPER EXTREMITIES: upper extremities are grossly normal. FROM, nml pulses b/l. LOWER EXTREMITIES: No pitting edema. FROM, nml pulses b/l. NEURO EXAM: Normal sensorium, cranial nerves II-XII grossly intact, normal speech, no gross weakness of arms, no gross weakness of legs. Course Course 0022: Past medical records reviewed. The patient was evaluated in room A09B. A complete history and physical exam was performed. 0245: Patient states she is still having chest tightness. 0328: Patient updated on CT results. States she feels improved, however still has a sense of slight tightness in the center of her chest. 0335: I spoke to Dr. Smith, [place] [facility] who will further evaluate the patient. The patient verbally expressed understanding and agreement of the treatment plan. The patient will be evaluated for further treatment. Administered Medications Discontinued Medications Al Hydrox/Mg Hydrox/Simethicone (Maalox) 15 ml PO NOW STA Stop: 07/10/19 03:35 Last Admin: 07/10/19 03:46 Dose: 15 ml Documented by: [id number] Al Hydrox/Mg Hydrox/Simethicone () 1 dose PO ONE ONE Stop: 07/10/19 04:13 Last Admin: 07/10/19 04:15 Dose: 1 dose Documented by: [id number] Amlodipine Besylate (Norvasc) 2.5 mg PO NOW ONE Stop: 07/10/19 05:46 Last Admin: 07/10/19 06:34 Dose: 2.5 mg Documented by: [id number] Aspirin (Aspirin) 324 mg PO NOW STA Stop: 07/10/19 03:35 Last Admin: 07/10/19 03:46 Dose: 324 mg Documented by: [id number] Aspirin (Ecotrin Ectab) 81 mg PO DAILY [facility] Stop: 08/09/19 08:59 Last Admin: 07/10/19 08:44 Dose: 81 mg Documented by: [id number] Enoxaparin Sodium (Lovenox) 40 mg SQ QAM [facility] Stop: 08/09/19 08:59 Last Admin: 07/10/19 08:46 Dose: 40 mg Documented by: [id number] Famotidine (Pepcid 20mg Iv Push) 20 mg IV ONE STA Stop: 07/10/19 00:31 Last Admin: 07/10/19 00:45 Dose: 20 mg Documented by: [id number] Fentanyl Citrate (Fentanyl Citrate) 50 mcg IV Q15M PRN PRN Reason: Pain Stop: 07/24/19 01:14 Last Admin: 07/10/19 01:22 Dose: 50 mcg Documented by: [id number] Folic Acid (Folvite) 1 mg PO BID [facility] Stop: 08/09/19 08:59 Last Admin: 07/10/19 08:44 Dose: 1 mg Documented by: [id number] Guaifenesin (Mucinex) 600 mg PO Q12 [facility] Stop: 08/09/19 05:12 Last Admin: 07/10/19 06:37 Dose: Not Given Documented by: [id number] Hydroxychloroquine Sulfate (Plaquenil) 400 mg PO DAILY [facility] Stop: 08/09/19 08:59 Last Admin: 07/10/19 08:44 Dose: 400 mg Documented by: [id number] Acetaminophen (Ofirmev) 1,000 mg in 100 mls @ 400 mls/hr IV NOW STA Stop: 07/10/19 01:29 Last Infusion: 07/10/19 01:52 Dose: 0 mls/hr Documented by: [id number] Admin: 07/10/19 01:22 Dose: 400 mls/hr Documented by: [id number] Lactated Ringer's (Lr) 1,000 mls @ 40 mls/hr IV .Q24H [facility] Stop: 08/09/19 05:12 Last Infusion: 07/10/19 10:23 Dose: 0 mls/hr Documented by: [id number] Admin: 07/10/19 05:29 Dose: 40 mls/hr Documented by: [id number] Sodium Chloride (Nss 1000ml) 1,000 mls @ 100 mls/hr IV .Q10H [facility] Stop: 08/09/19 10:14 Last Admin: 07/10/19 10:23 Dose: 100 mls/hr Documented by: [id number] Insulin Aspart (Novolog Flexpen) 0 units SC Q6 [facility] Stop: 08/09/19 05:59 Last Admin: 07/10/19 06:37 Dose: Not Given Documented by: [id number] Cosigned by: [id number] Insulin Aspart (Novolog Flexpen) 0 units SC ACHS [facility] Stop: 08/09/19 05:59 Last Admin: 07/10/19 11:55 Dose: Not Given Documented by: [id number] Cosigned by: [id number] Ioversol (Optiray 320 125ml) 125 ml IV ONCE PRN PRN Reason: Interaction Checking Stop: 07/14/19 01:55 Last Admin: 07/10/19 01:57 Dose: 118 ml Documented by: [id number] Levothyroxine Sodium (Synthroid) 150 mcg PO DAILYBB [facility] Stop: 08/09/19 06:29 Last Admin: 07/10/19 06:33 Dose: 150 mcg Documented by: [id number] Lisinopril (Zestril) 2.5 mg PO ONE ONE Stop: 07/10/19 04:09 Last Admin: 07/10/19 04:26 Dose: 2.5 mg Documented by: [id number] Methotrexate (Methotrexate) 17.5 mg PO DAILY [facility] Stop: 08/09/19 08:59 Last Admin: 07/10/19 08:44 Dose: 17.5 mg Documented by: [id number] Cosigned by: [id number] Metoprolol Succinate (Toprol Xl) 25 mg PO NOW STA Stop: 07/10/19 03:37 Last Admin: 07/10/19 04:13 Dose: Not Given Documented by: [id number] Miscellaneous (Order Awaiting Action) 1 ea N/A QS [facility] Stop: 08/09/19 07:59 Last Admin: 07/10/19 08:42 Dose: Not Given Documented by: [id number] Nitroglycerin (Nitro-Bid 2%) 1 inch EXT NOW STA Stop: 07/10/19 00:31 Last Admin: 07/10/19 00:44 Dose: 1 inch Documented by: [id number] Pantoprazole Sodium (Protonix) 40 mg PO QAM [facility] Stop: 08/09/19 08:59 Last Admin: 07/10/19 09:27 Dose: 40 mg Documented by: [id number] Rosuvastatin Calcium (Crestor) 5 mg PO MoWeTh@0900 [facility] Stop: 08/09/19 08:59 Last Admin: 07/10/19 08:42 Dose: 5 mg Documented by: [id number] Sertraline HCl (Zoloft) 50 mg PO DAILY [facility] Stop: 08/09/19 08:59 Last Admin: 07/10/19 08:44 Dose: 50 mg Documented by: [id number] Medical Decision Making Differential Diagnosis Differential diagnosis includes but is not limited to acute coronary syndrome, myocardial infarction, pericarditis, pulmonary embolus, aortic dissection, pneumonia, pneumothorax, musculoskeletal, shingles, esophageal. Medical Records Attestation: I reviewed the patient's medical records. Home Medications Current Medication List: was personally reviewed by me Laboratory Data Attestation: I reviewed the patient's lab results. Result diagrams: 07/10/19 00:32 07/10/19 00:32 Lab Results 07/10/19 07/10/19 07/10/19 Range/Units 00:32 00:32 00:32 WBC 9.54 (4.8-10.8) K/uL RBC 4.43 (4.2-5.4) M/uL Hgb 12.9 (12.0-16.0) g/dL Hct 39.8 (37-47) % MCV 89.8 (80-100) fL MCH 29.1 (25-34) pg MCHC 32.4 (32-36) g/dL RDW Std Deviation 45.4 (36.4-46.3) fL RDW Coeff of Meme 14.0 (11.5-14.5) % Plt Count 210 (130-400) K/uL MPV 9.9 (7.4-10.4) fL Immature Gran % (Auto) 0.4 % Neut % (Auto) 51.7 % Lymph % (Auto) 35.2 % [place] % (Auto) 7.5 % Eos % (Auto) 5.0 % Baso % (Auto) 0.2 % Immature Gran # (Auto) 0.04 H (0.00-0.02) K/uL Neut # (Auto) 4.92 (1.4-6.5) K/uL Lymph # (Auto) 3.36 (1.2-3.4) K/uL [place] # (Auto) 0.72 H (0.11-0.59) K/uL Eos # (Auto) 0.48 (0-0.5) K/uL Baso # (Auto) 0.02 (0-0.2) K/uL D-Dimer 590 H* (0-500) ug/L FEU Sodium 141 (136-145) mmol/L Potassium 4.1 (3.5-5.1) mmol/L Chloride 106 (98-107) mmol/L Carbon Dioxide 31 (21-32) mmol/L Anion Gap 5.0 (3-11) BUN 17 (7-18) mg/dl Creatinine 1.15 (0.6-1.2) mg/dl Est Cr Clr Drug Dosing 44.6 ml/min Est GFR ( Amer) 56.6 Est GFR (Non-Af Amer) 48.9 BUN/Creatinine Ratio 14.4 (10-20) Glucose 99 (70-99) mg/dl Calcium 10.0 (8.5-10.1) mg/dl Magnesium 2.0 (1.8-2.4) mg/dl Total Bilirubin 0.2 (0.2-1) mg/dl AST 13 L (15-37) U/L ALT 23 (12-78) U/L Alkaline Phosphatase 77 (45-117) U/L Troponin I < 0.015 (0-0.045) ng/ml NT-Pro-B Natriuret Pep 122 (0-900) pg/ml Total Protein 7.4 (6.4-8.2) gm/dl Albumin 3.9 (3.4-5.0) gm/dl Globulin 3.5 (2.5-4.0) gm/dl Albumin/Globulin Ratio 1.1 (0.9-2) Lipase 374 (73-393) U/L Imaging Data Attestation: I personally reviewed and interpreted this imaging study as follows: My Impression: Chest X-Ray Single View * No cardiomegaly * No pleural effusions * No focal consolidation * No acute pulmonary edema * No widening of mediastinum Radiologist's Impression: CTA chest: Heart and mediastinum are within normal limits. There are moderate coronary artery calcifications noted in the circumflex artery. Thoracic aorta appears normal. There is no pulmonary embolism. Lungs are clear without focal consolidation. Impression: No pulmonary embolism. Chest CT without contrast: Radiologist: Tang Coulter MD CTA abdomen and pelvis with contrast: There are no prior studies for comparison. The liver, spleen, pancreas appear normal. Gallbladder surgically absent. Stomach, small bowel, colon and appendix appear normal. Kidneys, ureter, and bladder appear normal. Uterus appears normal. There is a calcified uterine fibroid. Impression: No acute findings. Radiologist: Tang Coulter MD ECG Data Attestation: I personally reviewed and interpreted this ECG as follows: Indication: + chest pain Rate (beats per minute): 72 Rhythm: + sinus rhythm ECG Anita: + Normal ECG Findings: + Other (normal intervals, no acute ischemic changes ); no PACs and no PVCs Blood Pressure Blood Pressure Findings: Elevated blood pressure Blood Pressure Disposition: further management by hospitalist MDM Narrative Patient presenting here with atypical chest pain. Patient with multiple risk factors for ACS as well as prior diagnosis of coronary artery disease status post CO and stent x1. Patient hypertensive here, however vital signs otherwise stable. Patient's initial labs reassuring. Due to concern for radiation of pain into the back as well as elevated d-dimer, patient sent for CT angiography to rule out dissection as well as PE. This was unremarkable. No evidence of abdominal pathology contributing to pain as well. Patient received several medications here and while she had improvement of pain she did not have complete resolution. Discussed with patient all results and she was in agreement with plan for additional evaluation. Case discussed with hospitalist. No evidence of pericardial effusion, tamponade, pneumonia, mediastinitis, perforation, GI bleed. I feel patient's elevated blood pressure likely secondary to the pain and not an element of hypertensive urgency. Impression & Plan Atypical chest pain, HTN (hypertension) Discharge Plan Visit Data *Final* Discharge Date/Time: 07/10/19 04:38 Chief Complaint: Chest Pain Stated Complaint: TIGHTNESS IN CHEST AROUND TO BACK ED Provider: Magy Kurtz Discharge Problem: Atypical chest pain, HTN (hypertension) Patient Disposition: Admitted As Inpatient Discharge Instructions Interventions: ED Discharge Assessment Last Done: 07/10/19 04:38 Discharge Problem: HTN (hypertension) Qualifiers: Hypertension type: essential hypertension Qualified Code(s): I10 - Essential (primary) hypertension The scribe's documentation has been prepared under my direction and personally reviewed by me in its entirety. I confirm that the note above accurately reflects all work, treatment, procedures, and medical decision making performed by me.
[2019-07-10] MEDS ORDERED: ALUMINUM/MAGNESIUM SUSP 30 ML UDC PO STA (03:34)
[2019-07-10] MEDS ORDERED: ASPIRIN CHEW 324 MG PO STA (03:34)
[2019-07-10] MEDS ORDERED: METOPROLOL SUCC 25MG EXT REL TAB PO STA (03:36)
[2019-07-10] MEDS ORDERED: GI COCKTAIL ED USE PO ONE (04:12)
--- NOTE | 2019-07-10 04:12 | History & Physical Report ---
Date of Service July 10, 2019 Assessment & Plan (1) Asymptomatic hypertensive urgency: Secondary to epigastric discomfort likely GERD/GI upset CAD status post stent history CVA as per records hyperlipidemia on statin Rx rheumatoid arthritis, stable on regimen DM2 on oral medications, well-controlled as of recent outpatient hemoglobin A1c of 6.05 May 2019 past tobacco abuse as per records. OBS PCU Add lisinopril to regimen, further increase in beta-valorie dose precluded by bradycardia Antacid as needed Cardiology consult RE uncontrolled hypertension (Patient known to Dr. Howard.) N.p.o. for now in anticipation of any procedure pending specialist evaluation ISS BG goal [id number] DVT prophylaxis. Lovenox subcu Full code ADDENDUM : Outpatient records document history of hyperkalemia w/ ACEI/ARB. DC lisinopril. Add ACEI/ARB to patient's allergy/ADR list. Utilize Norvasc if BP still uncontrolled. History of Present Illness Chief Complaint: Epigastric discomfort going to the chest Primary Care Provider: Ariadne Charles MD History obtained from patient, family, and records. Medical history significant for CAD status post stent, history CVA, hypertension, hyperlipidemia, rheumatoid arthritis, mood disorder, DM 2 on oral medications, past tobacco abuse as per records. Last night patient noted burning, indigestion-like epigastric discomfort going to her chest and back with nausea, no emesis. No shortness of breath. Barbecue meal last night. Dry cough symptoms from 2 weeks ago attributed by PCP to viral URI. No fever, no chills. Somewhat different from her heart attack in the past which was more of discomfort going to the neck. At the ER, some improvement of discomfort with aspirin, nitroglycerin, Famotidine administration. SBP 200s at the hiatus upon arrival at the ER. Compliant with home meds. No unusual stress at home. 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 Allergies Allergy/AdvReac Type Severity Reaction Status Date / Time Sulfa (Sulfonamide Allergy Unknown Nausea Verified 07/10/19 01:25 Antibiotics) ABRAM Inhibitors AdvReac Mild hyperkalemi Verified 07/10/19 04:57 a carisoprodol AdvReac Unknown PT FELT Unverified 07/10/19 01:25 "DRUNK" niacin AdvReac Unknown HOT FLASHES Unverified 07/10/19 01:25 paroxetine AdvReac Unknown BLOATING, Unverified 07/10/19 01:25 WEIGHT GAIN Wuiyafh-Syn-Goq Reductase AdvReac Unknown SEVERE Verified 07/10/19 01:25 Inhibitor MUSCLE ACHES AND CRAMPS; ELEVATED LFTS venlafaxine AdvReac Unknown HYPERHIDROS Unverified 07/10/19 01:25 IS ARB-Angiotensin Receptor AdvReac hyperkalemi Verified 07/10/19 04:57 Antagonist a POWDERED GLOVES Allergy Unknown POWDER IN Uncoded 07/10/19 01:25 DISPOSABLE GLOVES CAUSED PT'S HANDS TO PEEL Zetia TABS Allergy Unknown Uncoded 07/10/19 01:25 Home Medications Home Medications Medication Instructions Recorded Confirmed Type acetaminophen 300 mg-codeine 15 mg 1 tab PO DAILY PRN tab 02/16/19 07/10/19 History tablet aspirin 81 mg chewable tablet 81 mg PO DAILY tab 02/16/19 07/10/19 History biotin 1 mg tablet 1 mg PO 5XWK tab 02/16/19 07/10/19 History calcium carbonate 600 mg calcium 600 mg PO 3XWK tab 02/16/19 07/10/19 History (1,500 mg) tablet coenzyme Q10 200 mg capsule 200 mg PO BID cap 02/16/19 07/10/19 History cyclosporine 0.05 % eye drops in a 1 drops OP Q12H ea 02/16/19 07/10/19 History dropperette lancets 30 gauge #25 ea 02/16/19 02/16/19 History metformin 500 mg tablet 500 mg PO DAILY tab 02/16/19 07/10/19 History metoprolol succinate 25 mg 25 mg PO DAILY tab 02/16/19 07/10/19 History tablet,extended release 24 hr nitroglycerin 0.4 mg sublingual 0.4 mg SL Q5M PRN tab 02/16/19 07/10/19 History tablet omega 3-dha 120 mg-epa 180 mg-fish 1 cap PO BID cap 02/16/19 07/10/19 History oil 600 mg capsule rosuvastatin 5 mg tablet 5 mg PO .COMPLEX tab 02/16/19 07/10/19 History sertraline 50 mg tablet 50 mg PO DAILY tab 02/16/19 07/10/19 History triamcinolone acetonide 0.1 % 1 appln TOPICAL BID PRN gm 02/16/19 07/10/19 History topical cream blood sugar diagnostic #10 ea 04/10/19 04/10/19 History hydroxychloroquine 200 mg tablet 400 mg PO DAILY #180 tab 05/03/19 07/10/19 History methotrexate sodium 2.5 mg tablet 17.5 mg PO DAILY tab 05/03/19 07/10/19 History folic acid 1 mg PO BID 07/10/19 07/10/19 History levothyroxine [Synthroid] 150 mcg PO DAILY 07/10/19 07/10/19 History Past Med/Surg History Social History Preferred Language: Filipino Communication Ability: Effective Beliefs That Will Affect Care: None Current Living Situation: Spouse Feels Safe at Home: Yes Safety Concerns: Feels Safe At This Time Smoking Status: Former smoker Hx Alcohol Use: No Hx Substance Use: No Review of Systems Review of Systems: As per HPI, all 10 systems reviewed, all other ROS negative Physical Exam Physical Exam: GENERAL: Comfortable, pleasant, no respiratory distress, obese SKIN: Normal color, warm HEENT: [place] palpebral conjunctivae, no ptosis, incessant blinking, dry buccal mucosa NECK : Supple, short neck, no tenderness CHEST : CTA, no tenderness HEART : RRR, no obvious murmurs ABDOMEN: Some distention, minimal epigastric tenderness EXTREMITIES : No LE swelling/tenderness, no other conspicuous deformities noted NEUROLOGIC : Coherent, no facial asymmetry, no other gross focality Results & Data Vital Signs (Past 12 Hours) Vital Signs Temp Pulse Pulse Resp BP BP Pulse Ox 07/10/19 03:54 59 L 18 157/69 H 96 07/10/19 03:08 72 18 141/68 H 95 07/10/19 01:16 77 18 180/83 H 94 07/10/19 01:03 71 18 182/85 H 95 07/10/19 00:43 71 19 192/118 H 96 07/10/19 00:25 97 07/10/19 00:13 36.8 C 72 18 207/86 H 98 Laboratory Results Laboratory Results WBC 9.54 K/uL (4.8-10.8) 07/10/19 00:32 RBC 4.43 M/uL (4.2-5.4) 07/10/19 00:32 Hgb 12.9 g/dL (12.0-16.0) 07/10/19 00:32 Hct 39.8 % (37-47) 07/10/19 00:32 MCV 89.8 fL (80-100) 07/10/19 00:32 MCH 29.1 pg (25-34) 07/10/19 00:32 MCHC 32.4 g/dL (32-36) 07/10/19 00:32 RDW Std Deviation 45.4 fL (36.4-46.3) 07/10/19 00:32 RDW Coeff of Meme 14.0 % (11.5-14.5) 07/10/19 00:32 Plt Count 210 K/uL (130-400) 07/10/19 00:32 MPV 9.9 fL (7.4-10.4) 07/10/19 00:32 Immature Gran % (Auto) 0.4 % 07/10/19 00:32 Neut % (Auto) 51.7 % 07/10/19 00:32 Lymph % (Auto) 35.2 % 07/10/19 00:32 [place] % (Auto) 7.5 % 07/10/19 00:32 Eos % (Auto) 5.0 % 07/10/19 00:32 Baso % (Auto) 0.2 % 07/10/19 00:32 Immature Gran # (Auto) 0.04 K/uL (0.00-0.02) H 07/10/19 00:32 Neut # (Auto) 4.92 K/uL (1.4-6.5) 07/10/19 00:32 Lymph # (Auto) 3.36 K/uL (1.2-3.4) 07/10/19 00:32 [place] # (Auto) 0.72 K/uL (0.11-0.59) H 07/10/19 00:32 Eos # (Auto) 0.48 K/uL (0-0.5) 07/10/19 00:32 Baso # (Auto) 0.02 K/uL (0-0.2) 07/10/19 00:32 D-Dimer 590 ug/L FEU (0-500) H* 07/10/19 00:32 Sodium 141 mmol/L (136-145) 07/10/19 00:32 Potassium 4.1 mmol/L (3.5-5.1) 07/10/19 00:32 Chloride 106 mmol/L (98-107) 07/10/19 00:32 Carbon Dioxide 31 mmol/L (21-32) 07/10/19 00:32 Anion Gap 5.0 (3-11) 07/10/19 00:32 BUN 17 mg/dl (7-18) 07/10/19 00:32 Creatinine 1.15 mg/dl (0.6-1.2) 07/10/19 00:32 Est Cr Clr Drug Dosing 44.6 ml/min 07/10/19 00:32 Est GFR ( Amer) 56.6 07/10/19 00:32 Est GFR (Non-Af Amer) 48.9 07/10/19 00:32 BUN/Creatinine Ratio 14.4 (10-20) 07/10/19 00:32 Glucose 99 mg/dl (70-99) 07/10/19 00:32 Calcium 10.0 mg/dl (8.5-10.1) 07/10/19 00:32 Magnesium 2.0 mg/dl (1.8-2.4) 07/10/19 00:32 Total Bilirubin 0.2 mg/dl (0.2-1) 07/10/19 00:32 AST 13 U/L (15-37) L 07/10/19 00:32 ALT 23 U/L (12-78) 07/10/19 00:32 Alkaline Phosphatase 77 U/L (45-117) 07/10/19 00:32 Troponin I < 0.015 ng/ml (0-0.045) 07/10/19 00:32 NT-Pro-B Natriuret Pep 122 pg/ml (0-900) 07/10/19 00:32 Total Protein 7.4 gm/dl (6.4-8.2) 07/10/19 00:32 Albumin 3.9 gm/dl (3.4-5.0) 07/10/19 00:32 Globulin 3.5 gm/dl (2.5-4.0) 07/10/19 00:32 Albumin/Globulin Ratio 1.1 (0.9-2) 07/10/19 00:32 Lipase 374 U/L (73-393) 07/10/19 00:[address] chest initial read: Heart and mediastinum within normal limits. Coronary artery calcifications noted in the circumflex artery. No pulmonary emboli. No consolidation. CT abdomen pelvis initial read : no acute findings EKG as per my interpretation call rate 70, NSR, normal axis, low voltage
[2019-07-10] MEDS ORDERED: CALCIUM CARBONATE 500 MG CHEWABLE TAB PO PRN (04:26)
[2019-07-10] MEDS ORDERED: ALBUT/IPRATROP 3MG/0.5MG NEB 3 ML VIAL NEB PRN (05:13)
[2019-07-10] MEDS ORDERED: CARBOHYDRATES FOR HYPOGLYCEMIA PO PRN (05:13)
[2019-07-10] MEDS ORDERED: PROMETHAZINE HCL 12.5 MG in SODIUM CHLORIDE 0.9% 50 ML IV PRN (05:13)
[2019-07-10] MEDS ORDERED: MoRPHine SULFATE 4 MG/ML 1 ML CARP\\VIAL IV PRN (05:13)
[2019-07-10] MEDS ORDERED: DEXTROSE 50% 50 ML SYRINGE IV PRN (05:13)
[2019-07-10] MEDS ORDERED: GLUCOSE 40% GEL 15 GM TUBE PO PRN (05:13)
[2019-07-10] MEDS ORDERED: TRAMADOL HCL 50 MG TABLET PO PRN (05:13)
[2019-07-10] MEDS ORDERED: LORazepam 0.25 MG/0.5 ML VIAL IV PRN (05:13)
[2019-07-10] MEDS ORDERED: LACTATED RINGER'S 1,000 ML IV SCH (05:13)
[2019-07-10] MEDS ORDERED: ACETAMINOPHEN 325 MG TAB PO PRN (05:13)
[2019-07-10] MEDS ORDERED: GLUCOSE 10 TABS/TUBE PO PRN (05:13)
[2019-07-10] MEDS ORDERED: NITROGLYCERIN SL 0.4 MG/TAB TAB SL PRN (05:13)
[2019-07-10] MEDS ORDERED: guaiFENesin 600 MG TABCR PO SCH (05:13)
[2019-07-10] MEDS ORDERED: GLUCAGON FOR INJ 1 MG VIAL SQ PRN (05:13)
[2019-07-10] MEDS ORDERED: AMLODIPINE BESYLATE 5 MG TAB PO ONE (05:45)
[2019-07-10] MEDS ORDERED: INSULIN ASPART 100 UNITS/ML 3 ML PEN SC SCH ×2 (06:00→11:30)
[2019-07-10] MEDS ORDERED: LEVOTHYROXINE SODIUM 150 MCG TABLET PO SCH (06:30)
--- NOTE | 2019-07-10 06:47 | CT Scan Report ---
CT ANGIOGRAPHY OF THE CHEST DISSECTION PROTOCOL CLINICAL HISTORY: Chest pain radiating into back. COMPARISON STUDY: Chest radiograph July 10, 2019 and January 17, 2017. TECHNIQUE: Before and following the IV administration of 118 mL of Optiray-320, helical axial images of the chest were obtained. Maximal intensity projections and sagittal and coronal reformats were vi ewed on an independent 3D workstation. IV contrast was administered without complication. Automated exposure control was utilized for the study. A dose lowering technique was utilized adhering to the principles of ALARA. FINDINGS: Prominent mediastinal bilateral hilar lymph nodes are likely benign. The caliber of the tho racic aorta is normal. There is no intramural hematoma or thoracic aortic dissection. The heart is mi ldly enlarged. Moderate coronary artery calcification is noted. There is no pericardial effusion. No pneumothorax or pleural effusion is noted. Is no consolidation to suggest pneumonia. There is mild up per lobe predominant emphysema. There are multiple small noncalcified pulmonary nodules, including a 4 mm right upper lobe nodule on image 90 of 406 and a 4 mm left lower lobe nodule on image 194. There are multiple smaller nodules. There is no pneumothorax or pleural effusion. Bony thorax is unremarka ble. The abdomen and pelvis will be reported separately. IMPRESSION: 1. No thoracic aortic dissection. 2. No acute findings within the chest. 3. Mild cardiomegaly. 4. Mild emphysema. 5. Multiple small solid noncalcified pulmonary nodules. These are likely benign however follow-up acc ording to the attached recommendations is suggested. 6. Prominent mediastinal and bilateral hilar lymph nodes which are likely benign but can be assessed on follow-up chest CT. SOLID NODULES Solitary nodule size: <6 mm * low risk patients: no follow-up needed * high risk patients: optional CT at 12 months Solitary nodule size: 6-8 mm * low risk patients: follow-up at 6-12 months, then consider further follow-up at 18-24 months * high risk patients: initial follow-up CT at 6-12 months and then at 18-24 months if no change Solitary nodule size: >8 mm * either low or high risk patients - consider follow-up CT at 3 months, and/or CT-PET, and/or biopsy Multiple nodules size: <6 mm * low risk patients: no routine follow-up * high risk patients: optional CT at 12 months Multiple nodules size: 6-8 mm * low risk patients: follow-up at 3-6 months, then consider further follow-up at 18-24 months * high risk patients: follow-up at 3-6 months, then at 18-24 months if no change Multiple nodules size: >8 mm * low risk patients: follow-up at 3-6 months, then consider further follow-up at 18-24 months * high risk patients: follow-up at 3-6 months, then at 18-24 months if no change Note: newly detected indeterminate nodule in persons 35 years of age or older. * low risk patients: minimal or absent history of smoking and/or other known risk factors * high risk patients: history of smoking or of other known risk factors (e.g. first degree relative with lung cancer, or exposure to asbestos, radon, uranium) * if a nodule up to 8 mm is partly solid or is ground glass further follow-up is required after 24 m onths to exclude possible slow growing adenocarcinoma (SAMI) ACT 112: Negative or not required by law. Electronically signed by: David Guzman M.D. 07/10/2019 6:45 AM
--- NOTE | 2019-07-10 06:48 | XRay Report ---
XR chest 1V portable CLINICAL HISTORY: Atypical chest pain COMPARISON STUDY: 01/17/2017 FINDINGS: The cardiac and mediastinal contours are normal. There is no evidence of focal pulmonary co nsolidation. There is no evidence of failure. No pleural effusions are visualized.[ IMPRESSION: No active disease in the chest. ACT 112: Negative or not required by law. Electronically signed by: Josh Paula M.D. 07/10/2019 6:47 AM
[2019-07-10 06:54] LABS: Partial Thromboplastin Ratio 0.9; Partial Thromboplastin Time 25.6 Seconds (21.0-31.0)
--- NOTE | 2019-07-10 07:17 | CT Scan Report ---
CT angio abd pelvis wo/w con CLINICAL HISTORY: chest pain into back COMPARISON STUDY: No previous studies for comparison. TECHNIQUE: Unenhanced and arterial phase imaging of the abdomen and pelvis was performed. Intravenous injection 118 cc Optiray 320 IV was uneventful. Sagittal and coronal reconstructions were viewed as well as maximal intensity projections on an independent 3-D workstation. Automated exposure control w as utilized for the study. A dose lowering technique was utilized adhering to the principles of PILAR Dobson. FINDINGS: There is no biliary ductal dilatation status post cholecystectomy. The liver, spleen, adren al glands, kidneys and pancreas are normal. There is no pancreatic ductal dilatation. No hydronephros is is present. The caliber and wall thickness of small and large bowel is normal. The appendix is nor mal. Calcified uterine fibroid is noted. There is no ascites or lymphadenopathy. There is no abscess. There are no suspicious osseous lesions. The caliber of the abdominal aorta is normal. There is moderate plaque within the abdominal aorta and branch vessels which are also patent. There is no dissection within the abdominal aorta. IMPRESSION: 1. Normal caliber abdominal aorta with moderate plaque. No abdominal aortic dissection or aneurysm. 2. No acute process within the abdomen or pelvis. ACT 112: Negative or not required by law. Electronically signed by: David Guzman M.D. 07/10/2019 7:15 AM
[2019-07-10 07:28] LABS: Chol HDL Ratio 5; Cholesterol 214 mg/dl (0-200); HDL Cholesterol 43 mg/dl; LDL Cholesterol Calculated 96 mg/dl; Triglycerides 373 mg/dl (0-150); Troponin I < 0.015 ng/ml (0-0.045); VLDL Cholesterol 75 mg/dl
[2019-07-10] MEDS ORDERED: FOLIC ACID 1 MG TAB PO SCH (09:00)
[2019-07-10] MEDS ORDERED: HYDROXYCHLOROQUINE SULFATE 200 MG TAB PO SCH (09:00)
[2019-07-10] MEDS ORDERED: ROSUVASTATIN CALCIUM 5 MG TAB PO SCH (09:00)
[2019-07-10] MEDS ORDERED: ASPIRIN 81 MG ECTAB PO SCH (09:00)
[2019-07-10] MEDS ORDERED: SERTRALINE HCL 50 MG TABLET PO SCH (09:00)
[2019-07-10] MEDS ORDERED: metHOTREXate sodium 2.5 MG TAB PO SCH (09:00)
[2019-07-10] MEDS ORDERED: PANTOprazole 40 MG TAB PO SCH (09:00)
[2019-07-10] MEDS ORDERED: ENOXAPARIN INJ 40 MG/0.4 ML SYR SQ SCH (09:00)
--- NOTE | 2019-07-10 10:12 | Hospitalist Progress Note ---
Date of Service delayed entry date of service as noted below July 10, 2019 Assessment & Plan (1) Asymptomatic hypertensive urgency: Secondary to epigastric discomfort likely GERD/GI upset -- CT abdomen/pelvis: 1. Normal caliber abdominal aorta with moderate plaque. No abdominal aortic dissection or aneurysm. . No acute process within the abdomen or pelvis. -- CT chest: 1. No thoracic aortic dissection. . No acute findings within the chest. 3. Mild cardiomegaly. 4. Mild emphysema. . Multiple small solid noncalcified pulmonary nodules. These are likely benign however follow-up according to the attached recommendations is suggested. . Prominent mediastinal and bilateral hilar lymph nodes which are likely benign but can be assessed on follow-up chest CT. -- HTN resolved, has good BP control as outpatient evaluated by [employer], troponins negative, EKG no acute ischemia, no further intervention, medication changes -- GI symptoms resolved, seems to be Dyspepsia, Pantoprazole x 2 weeks -- ff up with PCP Wednesday Pulmonary Nodules, Mediastinal Lymph Nodes -- ff up chest CT based on criteria full report included in the Procedure Section above CAD status post stent -- evaluated by [employer], troponins negative, EKG no acute ischemia, no further intervention, medication changes history CVA as per records -- no neuro deficits hyperlipidemia on statin Rx rheumatoid arthritis, stable on regimen DM2 on oral medications, well-controlled as of recent outpatient hemoglobin A1c of 6.05 May 2019 past tobacco abuse as per records. Subjective ff up for abdominal discomfort radiating to right shoulder blade seen resting in bed, comfortable states abdominal discomfort has resolved right shoulder pain also improving--> worse with laying on right side no chest pain, headache, dizziness, nausea, dyspnea, changes with BM/or urination, focal neuro symptoms no other symptoms re-evaluated in the afternoon tolerated oral intake well states she is ready and would like to be discharged Review of Systems Review of Systems: All systems reviewed & are unremarkable except as noted in HPI & below Physical Exam Physical Exam: General- oriented x 3, not in distress, speaks in sentences with no effort or accessory muscle use Head- atraumatic Eyes- PERRL, EOMI, anicteric ENT- oropharynx clear Neck- supple, no JVD, no adenopathy, no thyromegaly; carotids +2/2, no bruits appreciated Lungs- clear to auscultation bilaterally, no rales/wheezes Heart- normal rate, regular rhythm; no murmur, no gallop, no rub appreciated Abdomen- normal bowel sounds, nondistended, soft, nontender, no masses or hepatosplenomegaly Extremities- no pretibial edema, no calf tenderness; peripheral pulses intact Right shoulder blade- tender to palpation , localized on the inferior aspect Neuro- alert, oriented x 3; CN 2-12 grossly intact; motor 5/5 bilaterally;sensation 100% on all extremities; no other gross focal neurologic deficits Skin- warm & dry Results & Data Vital Signs (Past 12 Hours) Vital Signs Temp Pulse Pulse Resp BP BP Pulse Ox 07/10/19 07:55 55 L 07/10/19 07:50 36.7 C 73 20 148/71 H 94 07/10/19 05:00 56 L 07/10/19 04:57 36.6 C 58 L 16 188/73 H 95 07/10/19 04:21 66 18 164/91 H 96 07/10/19 03:54 59 L 18 157/69 H 96 07/10/19 03:08 72 18 141/68 H 95 07/10/19 01:16 77 18 180/83 H 94 07/10/19 01:03 71 18 182/85 H 95 07/10/19 00:43 71 19 192/118 H 96 07/10/19 00:25 97 07/10/19 00:13 36.8 C 72 18 207/86 H 98 Laboratory Results all noted and reviewed
[2019-07-10] MEDS ORDERED: Nursing to Pharmacy Communication ONE (10:13)
[2019-07-10] MEDS ORDERED: SODIUM CHLORIDE 0.9% 1000ML 1,000 ML IV SCH (10:15)
--- NOTE | 2019-07-10 14:14 | Cardiology Consultation ---
Date of Consultation July 10, 2019 Assessment & Plan (1) Atypical chest pain: The patient's complaints at the time of her presentation are not likely cardiac in origin. Suspect a GI etiology of her complaints. Fortunately, there were no acute EKG changes, and 2 troponin I levels are undetectable. No need for further cardiac testing at this time. (2) CAD (coronary artery disease): The patient suffered a non ST elevation [place] requiring a AJNELICA in the OM back in 2011. Has been quiescent current medical regimen. Normal dobutamine stress test performed in February 2019. Continue medical management. (3) HTN (hypertension): Suspect her elevated blood pressure time presentation was simply related to her discomfort and anxiety. Most recent blood pressure well controlled 124/67. (4) HLD (hyperlipidemia): Continue rosuvastatin. History of Present Illness Attending Physician: Eb Domingo MD History of Present Illness Mrs. Borges is a 61-year-old female admitted earlier today because of a chest pain syndrome. This consultation was ordered to assist in her cardiac management. Of note, the patient typically follows with Dr. Howard in the outpatient setting. The patient was in her usual state of health until approximately 7 p.m. last evening. After finishing her barbecue sandwich for dinner, she began to note a nauseous feeling in her mid chest and significant belching. At 9 p.m., she began to experience discomfort underneath her rib cage bilaterally which radiated around to her flank and back. She is also experiencing indigestion type discomfort. There were no other associated symptoms such as shortness of breath, vomiting, or diaphoresis. The patient became concerned, and therefore, presented to our emergency room at midnight.. On arrival here, her blood pressure was 207/86. Her symptoms resolved after the administration of intravenous famotidine, fentanyl, and topical nitrates. Hospitalization was recommended. The patient has been active on a daily basis caring for her home. She does not experience exertional chest pain or limiting dyspnea. She further denies syncope, presyncope, PND, orthopnea, palpitations, lower extremity edema, and claudication. The patient does carry history of coronary artery disease having suffered a non ST elevation [place] back in 2011. She had a ANJELICA placed in an obtuse marginal branch. She has done well from a cardiac perspective since that time. She did have a normal dobutamine stress test performed in February 2019. Currently, patient is resting comfortably in bed without complaints. Past medical and surgical history 1. Coronary artery disease-see above 2. OM ANJELICA-2011 3. Hypertension 4. Mild LVH 5. Diastolic dysfunction 6. Hypercholesterolemia 7. Hypothyroidism 8. Chronic renal failure 9. Obstructive sleep apnea 10. Diabetes mellitus 11. Rheumatoid arthritis 12. Cerebral vascular disease-50% right, 70% left internal carotid stenosis, May 2019 13. Irritable bowel syndrome 13. Uterine leiomyoma 14. Cholecystectomy 15. Tonsillectomy 16. 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 Had bypass surgery performed at the age of 69. A brother had bypass surgery performed at age 62 Review of systems A 10 point review of systems was negative except for that described above. Allergies Allergy/AdvReac Type Severity Reaction Status Date / Time Sulfa (Sulfonamide Allergy Unknown Nausea Verified 07/10/19 01:25 Antibiotics) ABRAM Inhibitors AdvReac Mild hyperkalemi Verified 07/10/19 04:57 a carisoprodol AdvReac Unknown PT FELT Unverified 07/10/19 01:25 "DRUNK" niacin AdvReac Unknown HOT FLASHES Unverified 07/10/19 01:25 paroxetine AdvReac Unknown BLOATING, Unverified 07/10/19 01:25 WEIGHT GAIN Urbhwmk-Wmp-Plx Reductase AdvReac Unknown SEVERE Verified 07/10/19 01:25 Inhibitor MUSCLE ACHES AND CRAMPS; ELEVATED LFTS venlafaxine AdvReac Unknown HYPERHIDROS Unverified 07/10/19 01:25 IS ARB-Angiotensin Receptor AdvReac hyperkalemi Verified 07/10/19 04:57 Antagonist a POWDERED GLOVES Allergy Unknown POWDER IN Uncoded 07/10/19 01:25 DISPOSABLE GLOVES CAUSED PT'S HANDS TO PEEL Zetia TABS Allergy Unknown Uncoded 07/10/19 01:25 Home Medications Home Medications Medication Instructions Recorded Confirmed Type acetaminophen 300 mg-codeine 15 mg 1 tab PO DAILY PRN tab 02/16/19 07/10/19 History tablet aspirin 81 mg chewable tablet 81 mg PO DAILY tab 02/16/19 07/10/19 History biotin 1 mg tablet 1 mg PO 5XWK tab 02/16/19 07/10/19 History calcium carbonate 600 mg calcium 600 mg PO 3XWK tab 02/16/19 07/10/19 History (1,500 mg) tablet coenzyme Q10 200 mg capsule 200 mg PO BID cap 02/16/19 07/10/19 History cyclosporine 0.05 % eye drops in a 1 drops OP Q12H ea 02/16/19 07/10/19 History dropperette lancets 30 gauge #25 ea 02/16/19 02/16/19 History metformin 500 mg tablet 500 mg PO DAILY tab 02/16/19 07/10/19 History metoprolol succinate 25 mg 25 mg PO DAILY tab 02/16/19 07/10/19 History tablet,extended release 24 hr nitroglycerin 0.4 mg sublingual 0.4 mg SL Q5M PRN tab 02/16/19 07/10/19 History tablet omega 3-dha 120 mg-epa 180 mg-fish 1 cap PO BID cap 02/16/19 07/10/19 History oil 600 mg capsule rosuvastatin 5 mg tablet 5 mg PO .COMPLEX tab 02/16/19 07/10/19 History sertraline 50 mg tablet 50 mg PO DAILY tab 02/16/19 07/10/19 History triamcinolone acetonide 0.1 % 1 appln TOPICAL BID PRN gm 02/16/19 07/10/19 History topical cream blood sugar diagnostic #10 ea 04/10/19 04/10/19 History hydroxychloroquine 200 mg tablet 400 mg PO DAILY #180 tab 05/03/19 07/10/19 History methotrexate sodium 2.5 mg tablet 17.5 mg PO DAILY tab 05/03/19 07/10/19 History folic acid 1 mg PO BID 07/10/19 07/10/19 History levothyroxine [Synthroid] 150 mcg PO DAILY 07/10/19 07/10/19 History Patient History Social History Preferred Language: Pashto Communication Ability: Effective Beliefs That Will Affect Care: None Current Living Situation: Spouse Feels Safe at Home: Yes Safety Concerns: Feels Safe At This Time Smoking Status: Former smoker Hx Alcohol Use: No Hx Substance Use: No Physical Exam Physical Exam: In general this is a well-developed well-nourished white female in no acute distress. HEENT exam is negative. Neck is supple with full carotid upstrokes. There are no carotid bruits. Jugular venous pressure is flat at 90. There is no thyromegaly. Cardiovascular exam reveals a regular rhythm with a normal S1 and S2. No S3, S4, or murmurs are noted. Lungs are clear without rales, rhonchi, or wheezes. Abdomen is soft and nontender without bruits. Extremities reveal intact radial artery and posterior tibial pulses bilaterally. There is no peripheral edema. Results & Data Vital Signs (Past 12 Hours) Vital Signs Temp Pulse Pulse Resp BP Pulse Ox 07/10/19 11:12 36.7 C 62 18 123/72 95 07/10/19 07:55 55 L 07/10/19 07:50 36.7 C 73 20 148/71 H 94 07/10/19 05:00 56 L 07/10/19 04:57 36.6 C 58 L 16 188/73 H 95 07/10/19 04:21 66 18 164/91 H 96 07/10/19 03:54 59 L 18 157/69 H 96 07/10/19 03:08 72 18 141/68 H 95 Laboratory Results [employer]ELOPER notes a hemoglobin of 12.9, medical crit 39.8, white count 9.5, and platelet count of 014259. Electrolytes noticed sodium of 141, potassium 4.1, chloride 106, bicarb 31, BUN 17, creatinine 1.15, glucose of 99. Troponin I levels undetectable at less than 0.015 x 2. LDL cholesterol is 96 with an HDL of 43. Diagnostic Findings EKG notes normal sinus rhythm with poor R-wave progression across the anterior precordium. Chest x-ray shows no acute disease. CT scan of the chest and abdomen was unremarkable. PG Care Time/CCT Total # of Minutes Spent Total Time Spent with Patient: Total time spent is greater than 50% in coordination of care (as documented) at patient's floor/unit and/or counseling patient: (1) HTN (hypertension) Hypertension type: essential hypertension Qualified Code(s): I10 - Essential (primary) hypertension
--- NOTE | 2019-07-10 15:07 | Electrocardiogram Report ---
Test Reason : Blood Pressure : / mmHG Vent. Rate : 072 BPM Atrial Rate : 072 BPM P-R Int : 176 ms QRS Dur : 080 ms QT Int : 402 ms P-R-T Axes : 063 029 081 degrees QTc Int : 440 ms Normal sinus rhythm Low voltage QRS Poor R wave progression, consider anterior UT vs. lead placement vs. LVH Abnormal ECG When compared with ECG of 17-JAN-2017 07:41, No significant change was found Confirmed by Chato Mendez ([id number]) on 07/10/2019 3:07:00 PM Referred By: REFERRED SELF Confirmed By:Chato Mendez
[2019-07-10] MEDS ORDERED: METOPROLOL SUCC 25MG EXT REL TAB PO SCH (21:00)
[2019-07-11] MEDS ORDERED: FAMOTIDINE 10 MG TABLET PO PRN (04:26)
--- NOTE | 2019-07-11 06:56 | Discharge Summary ---
Date of Service July 11, 2019 Admission HPI Per Admitting Provider History obtained from patient, family, and records. Medical history significant for CAD status post stent, history CVA, hypertension, hyperlipidemia, rheumatoid arthritis, mood disorder, DM 2 on oral medications, past tobacco abuse as per records. Last night patient noted burning, indigestion-like epigastric discomfort going to her chest and back with nausea, no emesis. No shortness of breath. Barbecue meal last night. Dry cough symptoms from 2 weeks ago attributed by PCP to viral URI. No fever, no chills. Somewhat different from her heart attack in the past which was more of discomfort going to the neck. At the ER, some improvement of discomfort with aspirin, nitroglycerin, Famotidine administration. SBP 200s at the hiatus upon arrival at the ER. Compliant with home meds. No unusual stress at home. 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 Admission Exam Per Admitting Provider GENERAL: Comfortable, pleasant, no respiratory distress, obese SKIN: Normal color, warm HEENT: [place] palpebral conjunctivae, no ptosis, incessant blinking, dry buccal mucosa NECK : Supple, short neck, no tenderness CHEST : CTA, no tenderness HEART : RRR, no obvious murmurs ABDOMEN: Some distention, minimal epigastric tenderness EXTREMITIES : No LE swelling/tenderness, no other conspicuous deformities noted NEUROLOGIC : Coherent, no facial asymmetry, no other gross focality Principal Diagnosis ABDOMINAL PAIN, HYPERTENSIVE URGENCY Discharge Exam General- oriented x 3, not in distress, speaks in sentences with no effort or accessory muscle use Head- atraumatic Eyes- PERRL, EOMI, anicteric ENT- oropharynx clear Neck- supple, no JVD, no adenopathy, no thyromegaly; carotids +2/2, no bruits appreciated Lungs- clear to auscultation bilaterally, no rales/wheezes Heart- normal rate, regular rhythm; no murmur, no gallop, no rub appreciated Abdomen- normal bowel sounds, nondistended, soft, nontender, no masses or hepatosplenomegaly Extremities- no pretibial edema, no calf tenderness; peripheral pulses intact Right shoulder blade- tender to palpation , localized on the inferior aspect Neuro- alert, oriented x 3; CN 2-12 grossly intact; motor 5/5 bilaterally;sensation 100% on all extremities; no other gross focal neurologic deficits Skin- warm & dry Discharge Data Allergies Allergy/AdvReac Type Severity Reaction Status Date / Time Sulfa (Sulfonamide Allergy Unknown Nausea Verified 07/10/19 01:25 Antibiotics) ABRAM Inhibitors AdvReac Mild hyperkalemi Verified 07/10/19 04:57 a carisoprodol AdvReac Unknown PT FELT Unverified 07/10/19 01:25 "DRUNK" niacin AdvReac Unknown HOT FLASHES Unverified 07/10/19 01:25 paroxetine AdvReac Unknown BLOATING, Unverified 07/10/19 01:25 WEIGHT GAIN Kbllqhy-Nuw-Htd Reductase AdvReac Unknown SEVERE Verified 07/10/19 01:25 Inhibitor MUSCLE ACHES AND CRAMPS; ELEVATED LFTS venlafaxine AdvReac Unknown HYPERHIDROS Unverified 07/10/19 01:25 IS ARB-Angiotensin Receptor AdvReac hyperkalemi Verified 07/10/19 04:57 Antagonist a POWDERED GLOVES Allergy Unknown POWDER IN Uncoded 07/10/19 01:25 DISPOSABLE GLOVES CAUSED PT'S HANDS TO PEEL Zetia TABS Allergy Unknown Uncoded 07/10/19 01:25 Consultations 07/10/19 03:33 ED Decision to Admit Stat 07/10/19 05:13 Consult Cardiology Routine Ordered Studies 07/10/19 01:26 CT angio abd pelvis wo/w con CLINICAL HISTORY: chest pain into back COMPARISON STUDY: No previous studies for comparison. TECHNIQUE: Unenhanced and arterial phase imaging of the abdomen and pelvis was performed. Intravenous injection 118 cc Optiray 320 IV was uneventful. Sagittal and coronal reconstructions were viewed as well as maximal intensity projections on an independent 3-D workstation. Automated exposure control was utilized for the study. A dose lowering technique was utilized adhering to the principles of ALARA. FINDINGS: There is no biliary ductal dilatation status post cholecystectomy. The liver, spleen, adrenal glands, kidneys and pancreas are normal. There is no pancreatic ductal dilatation. No hydronephrosis is present. The caliber and wall thickness of small and large bowel is normal. The appendix is normal. Calcified uterine fibroid is noted. There is no ascites or lymphadenopathy. There is no abscess. There are no suspicious osseous lesions. The caliber of the abdominal aorta is normal. There is moderate plaque within the abdominal aorta and branch vessels which are also patent. There is no dissection within the abdominal aorta. IMPRESSION: 1. Normal caliber abdominal aorta with moderate plaque. No abdominal aortic dissection or aneurysm. 2. No acute process within the abdomen or pelvis. CT ANGIOGRAPHY OF THE CHEST DISSECTION PROTOCOL CLINICAL HISTORY: Chest pain radiating into back. COMPARISON STUDY: Chest radiograph July 10, 2019 and January 17, 2017. TECHNIQUE: Before and following the IV administration of 118 mL of Optiray-320, helical axial images of the chest were obtained. Maximal intensity projections and sagittal and coronal reformats were viewed on an independent 3D workstation. IV contrast was administered without complication. Automated exposure control was utilized for the study. A dose lowering technique was utilized adhering to the principles of ALARA. FINDINGS: Prominent mediastinal bilateral hilar lymph nodes are likely benign. The caliber of the thoracic aorta is normal. There is no intramural hematoma or thoracic aortic dissection. The heart is mildly enlarged. Moderate coronary artery calcification is noted. There is no pericardial effusion. No pneumothorax or pleural effusion is noted. Is no consolidation to suggest pneumonia. There is mild upper lobe predominant emphysema. There are multiple small noncalcified pulmonary nodules, including a 4 mm right upper lobe nodule on image 90 of 406 and a 4 mm left lower lobe nodule on image 194. There are multiple smaller nodules. There is no pneumothorax or pleural effusion. Bony thorax is unremarkable. The abdomen and pelvis will be reported separately. IMPRESSION: 1. No thoracic aortic dissection. 2. No acute findings within the chest. 3. Mild cardiomegaly. 4. Mild emphysema. 5. Multiple small solid noncalcified pulmonary nodules. These are likely benign however follow-up according to the attached recommendations is suggested. 6. Prominent mediastinal and bilateral hilar lymph nodes which are likely benign but can be assessed on follow-up chest CT. SOLID NODULES Solitary nodule size: <6 mm * low risk patients: no follow-up needed * high risk patients: optional CT at 12 months Solitary nodule size: 6-8 mm * low risk patients: follow-up at 6-12 months, then consider further follow-up at 18-24 months * high risk patients: initial follow-up CT at 6-12 months and then at 18-24 months if no change Solitary nodule size: >8 mm * either low or high risk patients - consider follow-up CT at 3 months, and/or CT-PET, and/or biopsy Multiple nodules size: <6 mm * low risk patients: no routine follow-up * high risk patients: optional CT at 12 months Multiple nodules size: 6-8 mm * low risk patients: follow-up at 3-6 months, then consider further follow-up at 18-24 months * high risk patients: follow-up at 3-6 months, then at 18-24 months if no change Multiple nodules size: >8 mm * low risk patients: follow-up at 3-6 months, then consider further follow-up at 18-24 months * high risk patients: follow-up at 3-6 months, then at 18-24 months if no change Note: newly detected indeterminate nodule in persons 35 years of age or older. * low risk patients: minimal or absent history of smoking and/or other known risk factors * high risk patients: history of smoking or of other known risk factors (e.g. first degree relative with lung cancer, or exposure to asbestos, radon, uranium) * if a nodule up to 8 mm is partly solid or is ground glass further follow-up is required after 24 months to exclude possible slow growing adenocarcinoma (SAMI) ACT 112: Negative or not required by law. Electronically signed by: David Guzman M.D. 07/10/2019 6:45 AM Hospital Course (1) Asymptomatic hypertensive urgency: Secondary to epigastric discomfort likely GERD/GI upset -- CT abdomen/pelvis: 1. Normal caliber abdominal aorta with moderate plaque. No abdominal aortic dissection or aneurysm. . No acute process within the abdomen or pelvis. -- CT chest: 1. No thoracic aortic dissection. . No acute findings within the chest. 3. Mild cardiomegaly. 4. Mild emphysema. . Multiple small solid noncalcified pulmonary nodules. These are likely benign however follow-up according to the attached recommendations is suggested. . Prominent mediastinal and bilateral hilar lymph nodes which are likely benign but can be assessed on follow-up chest CT. -- HTN resolved, has good BP control as outpatient evaluated by Director Of Industrial Relations, troponins negative, EKG no acute ischemia, no fu rther intervention, medication changes -- GI symptoms resolved, seems to be Dyspepsia, Pantoprazole x 2 weeks -- ff up with PCP Wednesday Pulmonary Nodules, Mediastinal Lymph Nodes -- ff up chest CT based on criteria full report included in the Procedure Section above CAD status post stent -- evaluated by Director Of Industrial Relations, troponins negative, EKG no acute ischemia, no further intervention, medication changes history CVA as per records -- no neuro deficits hyperlipidemia on statin Rx rheumatoid arthritis, stable on regimen DM2 on oral medications, well-controlled as of recent outpatient hemoglobin A1c of 6.05 May 2019 past tobacco abuse as per records. Discharge to home today ff up with PCP Wed Total Time Total Time Spent Total Time Spent (In Minutes): 45 MINS Discharge Plan Discharge Items Patient Disposition: Home - Self-Care Reason For Visit: HTN URGENCY Discharge Diagnosis: ABDOMINAL PAIN Activity: As commented below Activity Comment: RESUME ACTIVITY GRADUALLY TOLERATED Lifting: Wait until after follow-up appointment Exercise/Sports: Wait until after follow-up appointment Driving/Machine Use: NO DRIVING UNTIL ALLOWED BY PRIMARY CARE PHYSICIAN Non-emergency contact: Primary Care Provider Call non-emergency contact if: you have any medication questions, your symptoms worsen, your pain is not controlled, your pain is worsening, your pain is unusual for you, your pain is concerning for you and you have a fever Diet: Heart Healthy Addtl Attending Provider Instructions: Your new medication is an antacid, pantoprazole 40 mg by mouth daily. Take this 30 minutes prior to first meal of the day. Also, Stop taking metformin for 2 days and restart on , July 13, 2019. Please follow-up with primary care physician , associate of Dr. Kemp, at [facility], on Wednesday, July 12, 2019 at 9:45 AM. Call primary care physician or return to the ER immediately if with worsening or recurrence of symptoms. Drink plenty of fluids. Pending Studies at Discharge: Yes Studies:: Repeat blood work-basic metabolic profile on follow-up with primary care physician on Friday, July 12, 2019. Stand-Alone Forms: Call Back Authorization, [place], Work/School Release (Inpt), Smoking Cessation Medications and DC Order Prescriptions: New pantoprazole 40 mg Tablet,Delayed Release (Dr/Ec) 40 mg PO QAM 14 Days Qty: 14 RF: 0 Continued (DME) UpsideTouch Ultra Blue Test Strip strip See Dose Instructions .ROUTE .MEDSUPPLY Qty: 10 RF: 0 hydroxychloroquine 200 mg tablet 400 mg PO DAILY Qty: 180 RF: 0 methotrexate sodium 2.5 mg tablet 17.5 mg PO DAILY RF: 0 aspirin 81 mg tablet,chewable 81 mg PO DAILY RF: 0 nitroglycerin 0.4 mg tablet, sublingual 0.4 mg SL Q5M PRN (Reason: chest pain) RF: 0 rosuvastatin 5 mg tablet 5 mg PO .COMPLEX RF: 0 acetaminophen-codeine 300-15 mg tablet 1 tab PO DAILY PRN (Reason: pain) RF: 0 biotin 1 mg tablet 1 mg PO 5XWK RF: 0 calcium carbonate 600 mg calcium (1,500 mg) tablet 600 mg PO 3XWK RF: 0 coenzyme Q10 200 mg capsule 200 mg PO BID RF: 0 (DME) lancets [OneTouch Delica Lancets] 30 gauge misc See Dose Instructions .ROUTE .MEDSUPPLY Qty: 25 RF: 0 [place]reme [place]-3 120-180-600 mg capsule 1 cap PO BID RF: 0 cyclosporine 0.05 % dropperette 1 drops OP Q12H RF: 0 sertraline 50 mg tablet 50 mg PO DAILY RF: 0 metoprolol succinate 25 mg tablet extended release 24 hr 25 mg PO DAILY RF: 0 triamcinolone acetonide 0.1 % cream 1 appln topical BID PRN (Reason: flares) RF: 0 levothyroxine [Synthroid] 150 mcg tablet 150 mcg PO DAILY RF: 0 folic acid 1 mg tablet 1 mg PO BID RF: 0 metformin 500 mg tablet 500 mg PO DAILY Qty: 0 RF: 0 Discharge Orders: Discharge Order (Routine); Ordered 07/10/19 Ordered By: Eb Domingo Admission Data Admit Date/Time: 07/10/19 04:52 Attending Provider: Eb Domingo Admit Provider: Carlos Ghosh Primary Care Provider: Ariadne Charles Other Providers: Carlos Ghosh ; Michael Howard Jr Other Interventions: Discharge Summary Assessment (RN) Last Done: 07/10/19 16:28 DC Date/Time DO NOT enter until pt leaves facility: 07/10/19 17:15
[2019-07-11] MEDS ORDERED: AMLODIPINE BESYLATE 5 MG TAB PO SCH (09:00)
== END 2019-07-10 17:15 | disposition home or self-care (01) ==
LOC: 2S 00:10 → ED 00:10 → 2S 04:38